=== PATIENT | female | born 1935 | race Caucasian/White ===

== ENCOUNTER 2016-03-30 11:50 | Emergency (ER) | payer MEDICARE, BC ==
[2016-03-30] MEDS ORDERED: ceFAZolin 1 GM in Dextrose (*) 1 GM/50 ML BAG IVPB ONE (17:01)
--- NOTE | 2016-03-30 17:30 | RAD ---
INDICATION: Pain at base of RIGHT thumb. Swelling and redness. No preceding injury. COMPARISON: None. TECHNIQUE: AP, lateral, and oblique views RIGHT hand. REPORT: Negative for fracture or dislocation. Polyarticular osteoarthritis most marked at the distal interphalangeal joints of the second through fifth fingers and at the basal joint of the thumb with severe joint space narrowing, osteophytosis, and subchondral sclerosis and cystic change. Associated periarticular soft tissue swelling most prominent at the distal interphalangeal joints. IMPRESSION: Advanced osteoarthritis including at the basal joint of the thumb corresponding with the region of clinical concern.
[2016-03-30 17:44] LABS: Hematocrit 46 % (35-47); Hemoglobin 15.7 g/dl (12.0-16.0); Mean Corpuscular HGB Conc 34 g/dl (31-36); Mean Corpuscular Hemoglobin 32 pg (27-31); Mean Corpuscular Volume 94 fL (80-97); Mean Platelet Volume 8 um3 (7.4-10.4); Red Blood Count 4.89 10^6/ul (4.0-5.4); Red Cell Distribution Width 13 % (10.5-15); White Blood Count 8.2 10^3/ul (3.5-10.8)
--- NOTE | 2016-03-30 18:01 | ED ---
Skin Complaint - HPI Summary HPI Summary: Patient arrives to ED with a CC of right thumb and hand swelling, warmth and redness since last night. Since in the waiting room (approx 5 hours), she now notes red streaking up the right arm ending at the elbow. Denies RA. Denies fever or FLETCHER. She states d/t her thin skin, she may have had an open wound around her thumb she was unaware of. She called her PCP which referred her to here for "IV antibiotics." No allergies. - History of Current Complaint Chief Complaint: EDExtremityUpper Stated Complaint: RT HAND/THUMB-HAND SWELLING Hx Obtained From: Patient Onset/Duration: Started Hours Ago Skin Exposure Onset/Duration: Worse Since: - arriving in ED Onset Severity: Mild Current Severity: Mild Pain Intensity: 0 Pain Scale Used: 0-10 Numeric Skin Location: Discrete - right tumb and index finger now streaking up forearm Character: Swelling, Redness Aggravating Symptom(s): Nothing Alleviating Symptom(s): Nothing Associated Signs & Symptoms: Red Streaks - up forearm to elbow of right extremity, Joint Swelling - rigth MCP joint swelling Related History: Other: - no known trauma - Additional Pertinent History Primary Care Physician: [id number] - Allergy/Home Medications Allergies/Adverse Reactions: Allergies Allergy/AdvReac Type Severity Reaction Status Date / Time No Known Allergies Allergy Verified 02/17/16 21:10 PMH/Surg Hx/FS Hx/Imm Hx Previously Healthy: Yes Endocrine/Hematology History: Denies: Hx Diabetes, Hx Thyroid Disease Cardiovascular History: Reports: Hx Hypertension Denies: Hx Pacemaker/ICD Respiratory History: Denies: Hx Asthma, Hx Chronic Obstructive Pulmonary Disease (COPD) GI History: Denies: Hx Ulcer Musculoskeletal History: Reports: Hx Arthritis - BACK,HANDS Comment Only: Other Musculoskeletal History - see above Sensory History: Reports: Hx Cataracts, Hx Contacts or Glasses - READING, Hx Glaucoma Denies: Hx Hearing Aid Opthamlomology History: Reports: Hx Cataracts, Hx Contacts or Glasses - READING , Hx Glaucoma Psychiatric History: Reports: Hx Anxiety - ON MEDS, Hx Panic Disorder - Cancer History Cancer Type, 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 L HIP REPLACEMENT. RT HIP PINNING. APPY,HYSTERECTOMY, CATARACT LEFT EYE, T&A Hx Anesthesia Reactions: No - Immunization History Date of Tetanus Vaccine: PT STATES UNSURE Date of Influenza Vaccine: NONE Infectious Disease History: No Infectious Disease History: Denies: Hx Clostridium Difficile, Hx Hepatitis, Hx Human Immunodeficiency Virus (HIV), Hx of Known/Suspected MRSA, Hx Shingles, Hx Tuberculosis, Hx Known/ Suspected VRE, Hx Known/Suspected VRSA, History Other Infectious Disease, Traveled Outside the [place] in Last 30 Days - Family History Known Family History: Positive: Cardiac Disease - Social History Occupation: Retired Lives: Alone Alcohol Use: Rare Substance Use Type: Reports: None Smoking Status (MU): Never Smoked Tobacco Review of Systems Constitutional: Negative Eyes: Negative Cardiovascular: Negative Respiratory: Negative Musculoskeletal: Negative Positive: Edema - over right MCP joint of thumb Positive: Other - redness and swelling over right thumb and index finger with streaking up right forearm Neurological: Negative Psychological: Normal All Other Systems Reviewed And Are Negative: Yes Physical Exam - Summary Physical Exam Summary: redness and swelling over right thumb and index finger with streaking up right forearm Triage Information Reviewed: Yes Vital Signs On Initial Exam: Initial Vitals Temp Pulse Resp BP Pulse Ox 98.4 F 81 16 169/83 99 03/30/16 12:00 03/30/16 12:00 03/30/16 12:00 03/30/16 12:00 03/30/16 12:00 Vital Signs Reviewed: Yes Appearance: Positive: Well-Appearing, No Pain Distress, Well-Nourished Skin: Positive: Warm, Erythema @ - right MCP thumb and index finger, Other - streaking right forearm Head/Face: Positive: Normal Head/Face Inspection Eyes: Positive: Normal, EOMI, MARTIR Neck: Positive: Supple, Nontender Respiratory/Lung Sounds: Positive: Clear to Auscultation Cardiovascular: Positive: Normal, RRR Musculoskeletal: Positive: Normal, Strength/ROM Intact, Limited @ - right thumb flexion, adduction and abduction Psychiatric: Positive: Normal Diagnostics - Vital Signs Vital Signs Temp Pulse Resp BP Pulse Ox 03/30/16 17:52 99.2 F 74 18 165/74 97 03/30/16 12:00 98.4 F 81 16 169/83 99 - Laboratory Lab Results: Lab Results 03/30/16 Range/Units 17:30 WBC 8.2 (3.5-10.8) 10^3/ul RBC 4.89 (4.0-5.4) 10^6/ul Hgb 15.7 (12.0-16.0) g/dl Hct 46 (35-47) % MCV 94 (80-97) fL MCH 32 H (27-31) pg MCHC 34 (31-36) g/dl RDW 13 (10.5-15) % Plt Count 244 (150-450) 10^3/ul MPV 8 (7.4-10.4) um3 Neut % (Auto) 64.7 (38-83) % Lymph % (Auto) 18.5 L (25-47) % [place] % (Auto) 14.8 H (1-9) % Eos % (Auto) 0.9 (0-6) % Baso % (Auto) 1.1 (0-2) % Absolute Neuts (auto) 5.3 (1.5-7.7) 10^3/ul Absolute Lymphs (auto) 1.5 (1.0-4.8) 10^3/ul Absolute Monos (auto) 1.2 H (0-0.8) 10^3/ul Absolute Eos (auto) 0.1 (0-0.6) 10^3/ul Absolute Basos (auto) 0.1 (0-0.2) 10^3/ul Absolute Nucleated RBC 0.01 10^3/ul Nucleated RBC % 0.1 ESR Pending Result Diagrams: 03/30/16 17:30 03/30/16 17:30 Lab Statement: Any lab studies that have been ordered have been reviewed, and results considered in the medical decision making process. - Radiology No standard instances Xray Interpretation: No Acute Changes Radiology Interpretation Completed By: Radiologist Course/Dx - Course Course Of Treatment: Patient given 1g Cefazolin, labs drawn and xray. Xray showed osteoarthritis but no acute findings. Consult with Dr. Varela at 5:15p deferred to ED providers if safe to DC or admit for IV abx. Provider and Dr. Marvin agreed safe to go home on Bactrim with close return precautions and follow up with Dr. Varela on Saturday. Patient agrees and feels safe to go home. - Differential Diagnoses - Skin Complaint Differential Diagnoses: Angioedema, Cellulitis, Urticaria - Diagnoses Provider Diagnoses: Cellulitis of hand, right Discharge - Discharge Plan Condition: Stable Disposition: HOME Prescriptions: Sulfamethox/Trimethoprim DS* [Bactrim DS 800/160 TAB*] 1 tab PO BID #14 tab MDD 2 Patient Education Materials: Cellulitis (ED) Referrals: Kathy Comer MD [Primary Care Provider] - Chino Varela MD [Medical Doctor] - Additional Instructions: Follow up with Dr. Varela on Saturday, Apr 03. Call for appt on Saturday. Watch for signs of infection such as worsening redness, pain, swelling warmth, streaking up the arm or fever. If you develop chills or sweats, come back to ED. Take Bactrum once daily for [address] Varela tells you different.
[2016-03-30 18:05] LABS: Albumin 4.3 g/dL (3.2-5.2); BUN/Creatinine Ratio 13.8 (8-20); Calcium 9.8 mg/dL (8.6-10.3); EGFR Non-African American 99.5 (>60); Globulin 3.4 g/dL (2-4); Potassium 4.2 mmol/L (3.5-5.0); Total Bilirubin 0.7 mg/dL (0.2-1.0); Total Protein 7.7 g/dL (6.4-8.9)
[2016-03-30 18:24] LABS: Erythrocyte Sed Rate 27 mm/Hr (0-40)
[2016-03-30] MEDS ORDERED: Sulfamethox/Trimethoprim DS 800/160* TAB PO ONE ×2 (19:49)
[2016-03-30 20:20] VITALS: BP 115/72
== END 2016-03-30 20:19 | disposition home or self-care (01) ==
LOC: ED 11:50 → MED 17:45 → UNDOADMOB 17:45 → ED 20:19
DX: L03.113 Cellulitis of right upper limb (principal); R60.9 Edema, unspecified
CPT/HCPCS: 36415; 80053; 83605; 85025; 85652; 87040; 96365; 99282; A9270-GY; J0690

== ENCOUNTER 2016-09-18 11:30 | Day surgery (SDC) | payer MEDICARE, OTHER ==
[~2016-09-18 11:30] MED LIST: Acetaminophen TAB* 325 MG PO PRN; Buffered Lidocaine 0.9% SYRIN* 5 ML/SYR SYRINGE INTRADERM ONE
[2016-09-18] MEDS ORDERED: Flurbiprofen 0.03% OPTH.SOL* 2.5 ML BTL ONE (11:39)
[2016-09-18] MEDS ORDERED: Phenylephrine 2.5% OPTH.SOL* 2 ML BTL ONE (11:39)
[2016-09-18] MEDS ORDERED: Buffered Lidocaine 0.9% SYRIN* 5 ML/SYR SYRINGE ONE (11:39)
[2016-09-18] MEDS ORDERED: Neomycin/Polymy/Dex OPHTH.OIN* 3.5 GM ONE (11:39)
[2016-09-18] MEDS ORDERED: Cyclopentolate 1% OPTH.SOL* 2 ML BTL ONE (11:39)
[2016-09-18] MEDS ORDERED: Tropicamide 1% OPTH.SOL* BTL ONE (11:39)
[2016-09-18] MEDS ORDERED: Lidocaine 1% MPF* 2 ML VIAL ONE (11:39)
[2016-09-18] MEDS ORDERED: Tetracaine 0.5% OPTH.SOL 4 ML* 1 DROP BTL ONE (11:39)
[2016-09-18] MEDS ORDERED: Midazolam* 1 MG/ML 2 ML VIAL (2 MG) ONE (11:50)
[2016-09-18] MEDS ORDERED: fentaNYL* 50 MCG/ML 2 ML VIAL (100 MCG VIAL) ONE (12:13)
[2016-09-18] MEDS ORDERED: Phenylephr/Ketorolac 1%/0.3% OPH DROP BTL ONE (12:40)
[2016-09-18 13:07] VITALS: BP 175/72
--- NOTE | 2016-09-19 02:29 | OP ---
DATE OF OPERATION: 09/18/16 - [facility] DATE OF : 31 SURGEON: Marco A Deluna MD [place]E RUNNER: None. ANESTHESIA: Topical with intravenous sedation. PRE-OP DIAGNOSES: Cataract with glaucoma and small pupil, pseudoexfoliation material right eye. POST-OP DIAGNOSES: Cataract with glaucoma and small pupil, pseudoexfoliation material right eye. OPERATIVE PROCEDURE: Phacoemulsification and cataract extraction with posterior chamber intraocular lens implant and iStent implant, right eye. COMPLICATIONS: None. BLOOD LOSS: None. DESCRIPTION OF PROCEDURE: The patient was brought to the operating room and received a small amount of intra-venous sedation. A drop of tetracaine was placed into her right eye. The patient was prepped and draped in the usual sterile fashion for ophthalmic surgery and attention was directed to the right eye, where a speculum was placed. A paracentesis was created at the 11 o'clock position and 0.1 cc of 1% preservative-free lidocaine was injected into the anterior chamber followed by DisCoVisc. It was noted that pupil measured approximately 3.5 mm in diameter despite preoperative dilating drops. The addition of the DisCoVisc did not further dilate the pupil. The eye was digitally stabilized while a 2.75-mm keratome was used to create a triplanar clear corneal incision at the 9 o'clock position. A Malyugin ring was introduced into the anterior chamber and used to capture the pupillary border. The Malyugin ring served to dilate the pupil nicely for the duration of the case. A continuous curvilinear capsulorrhexis was created with a cystotome and Utrata forceps. BSS on a cannula was used to hydrodissect the lens from the capsule. The pressure in the irrigating system was reduced. Phacoemulsification was performed in a [id number] technique to create 4 fragments, which were removed. Residual cortical material was removed with irrigation and aspiration. Gentle vacuuming and polishing of the posterior capsule was performed. DisCoVisc was used to inflate the capsular bag. An [id number] 20 diopter lens was folded and inserted into the capsular bag. DisCoVisc was then removed from posterior to the lens. Supplemental DisCoVisc was placed anterior to the lens. The Malyugin ring was atraumatically removed from the eye. More DisCoVisc was placed in the anterior chamber to deepen it. DisCoVisc was also placed on the surface of the cornea. The patient's head was rotated away from the surgeon and the microscope was tilted toward the surgeon. A gonioprism was placed on the surface of the eye. Under direct visualization , iStent was inserted into the trabecular meshwork in the nasal aspect of the eye. The gonioprism and iStent director of pharmacy were removed. The eye and the microscope were brought to a neutral position. Irrigation and aspiration were then performed to remove all viscoelastic from the eye. BSS on a cannula was used to hydrate the corneal stoma and seal the wound. At the end of the case, the pupil was round and measured approximately 3 mm. The eye pressure appeared normal. The wound was watertight. The lens and iStent were in stable position. The speculum was removed and topical Maxitrol ointment was placed on the surface of the eye. The eye was closed, patched, and shielded and the patient was sent to the recovery room in stable condition with postoperative instructions and followup appointment given. [id number]/[facility] #: [id number] FABIAN
== END 2016-09-18 13:02 | disposition home or self-care (01) ==
LOC: OREAST 11:30
PROVIDERS: ATTEND Ophthalmology
DX: H25.11 Age-related nuclear cataract, right eye (principal); H21.562 Pupillary abnormality, left eye; H40.89 Other specified glaucoma; I10 Essential (primary) hypertension
CPT/HCPCS: A9270-GY; C1783; C9447; J2250; J3010; V2632

== ENCOUNTER 2017-04-10 20:25 | Observation (INO) | payer MEDICARE, BC ==
--- OUTSIDE RECORDS SUMMARY | 2017-04-10 20:59 | XMS REPORT ---
:1935 External Reference #:[id number] Author Organization [facility] Address [address] [place] [address] Phone [phone] Care Team Providers Name Role Phone Kathy Dai M.D., R.D. Care Team Information Facility Service Associate Unavailable Payers Type Date Identification Numbers Payment Provider Subscriber Medicare Primary Policy Number: [id number] Medicare - Bswny Umd Tristin Chowdhury PayID: [id number] [address] [place] [address] Medigap Part B Policy Number: [id number] [facility]([place] Tristin Chowdhury Group Name: [place] [address] PayID: [id number] [place] [address] Problems Description No Information Family History Date Family Member(s) Problem(s) Comments Children 3 Daughter and son live in [place]. Another son is a little further away. 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 every night and 1/2 tablet in the morning Lisinopril 04/18 Active Tablets 30mg 90tab take one s tablet by julien Dai M.D., every day R.D. Buspirone HCL 11/17 Active Tablets 10mg 180ta Take One bs Tablet By Julien Dai M.D., Twice A R.D. Day Aspir-81 09/21 Active Tablets 81mg 30tab [address] celia Dai, every day Cliff, RCathiDCathi Calcium 1000 + D 09/21 Active Tablets 1000-800m 1 po bid g-Unit Cliff Dai, R.DCathi Fish Oil 09/21 Active Capsules 1000mg 1 by julien Dai, every day Cliff, R.D. Multivitamins 09/21 Active Capsules 90cap 1 by celia Dai, every day Cliff, RCathiDCathi Vitamin C 09/21 Active 1 by julien Dai, every day Cliff, R.D. Zetia 09/21 Active Tablets 10mg 90tab take celia one/half Suhas tablet by Cliff, mouth R.DCathi daily Hydrochlorothiazide 04/05 Hx Tablets 25mg 30tab 1 by Al celia Whaley - every day , 04/05 Metoprolol Succinate 11/26 Hx Tablets 50mg 30tab 1 by Kathy ER 24HR celia Dai - every day Cliff, 11/28 R.D. Hydrochlorothiazide 10/03 Hx Tablets 25mg 30tab 1 by Al celia Whaley - every day , 10/03 Metoprolol Tartrate 09/26 Hx Tablets 25mg 60tab take one s tablet by Maru Dai M.D., 09/26 twice a R.D. /2016 day Metoprolol Succinate 09/26 Hx Tablets 100-12.5m Kathy ER/othiaz ER 24HR Rangel M.D., 09/26 R.D. Metoprolol Tartrate 09/26 Hx Tablets 25mg take one tablet by Suhas, - mouth M.D., 09/26 twice a R.D. /2016 day Amlodipine Besylate 09/26 Hx Tablets 2.5mg 90tab 1 by s mouth Suhas, - every day M.D., 03/13 R.D. Lisinopril 08/24 Hx Tablets 40mg 30tab 1 by s mouth Suhas, - every day M.D., 09/02 R.D. 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 /2016 Fosamax 09/18 Hx Tablets 70mg 13tab one every Al s week on Heetpinky mccann MD 11/27 do not lie down for at least 1/2 hour after taking Lisinopril 04/06 Hx Tablets 40mg 30tab 1 by s mouth Suhas, - every day M.D., 04/18 R.D. Lexapro 04/06 Hx Tablets 10mg 30tab 1/2 by I10 s mouth Suhas, - every day M.D., 04/18 for 3 R.D. /2015 days, then increase to 1 by mouth every day Lisinopril 11/17 Hx Tablets 20mg 30tab 2 by s mouth Suhas, - every day M.D., 04/06 R.D. /2015 Ativan 10/14 Hx Tablets 1mg 15tab 1 by F41.9 s mouth Suhas, - twice a M.D., 11/27 day R.D. /2015 Lisinopril 10/07 Hx Tablets 10mg 45tab 1 1/2 by s mouth Suhas, - every day M.D., 11/17 R.D. /2014 Lisinopril 09/21 Hx Tablets 5mg 90tab 1 by s mouth Suhas, - every day M.D., 10/07 R.D. Buspirone HCL 09/21 Hx Tablets 7.5mg 180ta Take One bs Tablet By Suhas, - Mouth M.DCathi, 11/17 Twice A R.D. /2014 Day Atenolol 09/21 Hx Tablets 25mg 135ta take one bs tablet by Suhas, - mouth M.D., 11/26 every in R.D. the morning and 1/2 tablet by mouth every at night Immunizations CPT Code Status Date Vaccine Lot # [id number] Given 11/24/2016 Influenza Virus Vaccine, Quadrivalent, 3 Yr > Quad, Preserv Free 30098 Given 11/28/2015 Influenza Virus Vaccine, Quadrivalent, 3 Yr > [id number] Quad, Preserv Free 27319 Given 12/13/2014 Prevnar-13 Pneumococcal Conjugate Vaccine [id number] 41520 Given 12/13/2014 Influenza Vaccine High Dose PF [id number] 74920 Given 12/16/2013 Influenza Vaccine High Dose PF [id number] 58804 Given 10/10/2007 Zoster Vaccine [id number] Given 09/09/2007 Tdap (Adacel) 33420 Given 07/09/2002 Pneumovax 23 (PPSV23) 65+ years or high risk 2 to 64 year old Vital Signs Date Vital Result Comment 04/05/2017 Weight 127.00 lb Weight in kg's 57.607 BP Systolic 176 mmHg 152/80 on repeat BP Diastolic 90 mmHg 152/80 on repeat Heart Rate 64 /min Body Temperature 96.8 F Respiratory Rate 18 /min O2 % BldC Oximetry 98 % 03/13/2017 Weight 131.00 lb Weight in kg's 59.422 BP Systolic 140 mmHg BP Diastolic 70 mmHg Heart Rate 68 /min Body Temperature 98.1 F Respiratory Rate 16 /min 02/25/2017 Weight 131.00 lb Weight in kg's 59.422 BP Systolic 160 mmHg BP Diastolic 78 mmHg Heart Rate 70 /min Body Temperature 97.9 F Respiratory Rate 15 /min O2 % BldC Oximetry 97 % 01/03/2017 Weight 129.00 lb Weight in kg's 58.514 BP Systolic 180 mmHg BP Diastolic 68 mmHg Heart Rate 68 /min Body Temperature 97.4 F 11/26/2016 Weight 128.00 lb Weight in kg's 58.061 BP Systolic 130 mmHg BP Diastolic 70 mmHg Heart Rate 72 /min Body Temperature 98.7 F Respiratory Rate 16 /min 10/03/2016 Weight 127.00 lb Weight in kg's 57.607 BP Systolic 140 mmHg BP Diastolic 80 mmHg Heart Rate 100 /min Body Temperature 98.6 F Respiratory Rate 14 /min 08/24/2016 Weight 128.00 lb Weight in kg's 58.061 BP Systolic 164 mmHg BP Diastolic 70 mmHg Heart Rate 78 /min Body Temperature 97.7 F Respiratory Rate 18 /min Height 64 inches 5'4" BMI (Body Mass Index) 22.0 kg/m2 O2 % BldC Oximetry 98 % 05/07/2016 Weight 126.00 lb Weight in kg's 57.154 BP Systolic 140 mmHg BP Diastolic 78 mmHg Heart Rate 78 /min Body Temperature 99.1 F Respiratory Rate 18 /min O2 % BldC Oximetry 98 % 05/03/2016 Weight 128.00 lb Weight in kg's 58.061 BP Systolic 150 mmHg BP Diastolic 72 mmHg Heart Rate 72 /min Body Temperature 98.9 F Respiratory Rate 14 /min 03/30/2016 Weight 128.00 lb Weight in kg's 58.061 BP Systolic 158 mmHg BP Diastolic 68 mmHg Heart Rate 89 /min Body Temperature 98.0 F Respiratory Rate 16 /min Height 63.5 inches 5'3.50" BMI (Body Mass Index) 22.3 kg/m2 O2 % BldC Oximetry 99 % 02/27/2016 Weight 128.00 lb Weight in kg's 58.061 BP Systolic 127 mmHg BP Diastolic 65 mmHg Heart Rate 76 /min 11/28/2015 Weight 127.00 lb Weight in kg's 57.607 BP Systolic 120 mmHg BP Diastolic 70 mmHg Heart Rate 64 /min Body Temperature 98.1 F Respiratory Rate 12 /min 07/11/2015 Weight 125.00 lb Weight in kg's 56.700 BP Systolic 130 mmHg BP Diastolic 65 mmHg Heart Rate 50 /min Height 63.5 inches 5'3.50" BMI (Body Mass Index) 21.8 kg/m2 O2 % BldC Oximetry 90 % 05/18/2015 Weight 127.00 lb Weight in kg's 57.607 BP Systolic 140 mmHg BP Diastolic 62 mmHg Heart Rate 74 /min O2 % BldC Oximetry 98 % 04/18/2015 Weight 126.00 lb Weight in kg's 57.154 BP Systolic 140 mmHg BP Diastolic 60 mmHg Heart Rate 76 /min 04/06/2015 Weight 127.00 lb Weight in kg's 57.607 BP Systolic 174 mmHg Auto Cuff: 196/75 BP Diastolic 78 mmHg Auto Cuff: 196/75 Heart Rate 100 /min Auto 106 03/24/2015 Weight 127.00 lb Weight in kg's 57.607 BP Systolic 148 mmHg BP Diastolic 76 mmHg Heart Rate 72 /min 03/08/2015 Weight 126.00 lb Weight in kg's 57.154 BP Systolic 160 mmHg BP Diastolic 80 mmHg Heart Rate 64 /min Body Temperature 97.2 F 12/13/2014 Weight 126.00 lb Weight in kg's 57.154 BP Systolic 150 mmHg BP Diastolic 76 mmHg Heart Rate 68 /min 11/17/2014 Weight 124.00 lb Weight in kg's 56.246 BP Systolic 140 mmHg BP Diastolic 60 mmHg Heart Rate 60 /min 10/27/2014 Weight 122.00 lb Weight in kg's 55.339 BP Systolic 160 mmHg BP Diastolic 78 mmHg Heart Rate 72 /min 10/21/2014 Weight 121.00 lb Weight in kg's 54.886 BP Systolic 180 mmHg BP Diastolic 90 mmHg Heart Rate 72 /min 10/14/2014 Weight 122.00 lb Weight in kg's 55.339 BP Systolic 190 mmHg Ashley 160/70 BP Diastolic 98 mmHg Ashley 160/70 Heart Rate 76 /min 10/07/2014 Weight 120.00 lb Weight in kg's 54.432 BP Systolic 160 mmHg [id number] BP Diastolic 80 mmHg [id number] Heart Rate 68 /min [id number] 09/09/2014 Weight 119.00 lb Weight in kg's 53.978 BP Systolic 160 mmHg BP Diastolic 70 mmHg Heart Rate 64 /min Body Temperature 98.0 F 06/28/2014 Weight 121.00 lb Weight in kg's 54.886 BP Systolic 122 mmHg BP Diastolic 60 mmHg Heart Rate 72 /min Height 64 inches 5'4" BMI (Body Mass Index) 20.8 kg/m2 05/13/2014 Weight 121.00 lb Weight in kg's 54.886 BP Systolic 148 mmHg BP Diastolic 80 mmHg Heart Rate 62 /min 11/02/2013 Weight 121.00 lb Weight in kg's 54.886 BP Systolic 138 mmHg BP Diastolic 68 mmHg Heart Rate 66 /min 10/21/2013 Weight 123.00 lb Weight in kg's 55.793 BP Systolic 130 mmHg BP Diastolic 60 mmHg Heart Rate 62 /min O2 % BldC Oximetry 96 % 09/21/2013 Weight 122.00 lb Weight in kg's 55.339 BP Systolic 140 mmHg BP Diastolic 70 mmHg Heart Rate 76 /min Height 64 inches 5'4" BMI (Body Mass Index) 20.9 kg/m2 Results Test Date Test Result H/L Range Note Urine DIP 01/03/2017 Leukocytes trace Neg Urine Nitrites neg Neg Urobilinogen norm Norm Total Protein, Urine neg Neg Urine pH 7.0 High 5-6 Urine Blood neg Neg Specific [place] 1.010 1.01-1.02 Urine Ketones neg Neg Urine Bilirubin neg Neg Urine Glucose norm Norm Basic Metabolic Panel 09/17/2016 Sodium 131 mmol/L Low 133-145 Potassium 4.5 mmol/L 3.5-5.0 Chloride 97 mmol/L Low 101-111 Co2 Carbon Dioxide 29 mmol/L 22-32 Anion Gap 5 mmol/L 2-11 Glucose 92 mg/dL 70-100 Blood Urea Nitrogen 12 mg/dL 6-24 Creatinine 0.66 mg/dL 0.51-0.95 BUN/Creatinine Ratio 18.2 8-20 Calcium 9.5 mg/dL 8.6-10.3 Egfr Non- 85.5 >60 Egfr 110.0 >60 1 CBC Auto Diff 08/29/2016 White Blood Count 6.0 10^3/uL 3.5-10.8 Red Blood Count 4.92 10^6/uL 4.0-5.4 Hemoglobin 15.4 g/dL 12.0-16.0 Hematocrit 47 % 35-47 Mean Corpuscular Volume 95 fL 80-97 Mean Corpuscular Hemoglobin 31 pg 27-31 Mean Corpuscular HGB Conc 33 g/dL 31-36 Red Cell Distribution Width 13 % 10.5-15 Platelet Count 321 10^3/uL 150-450 Mean Platelet Volume 8 um3 7.4-10.4 Abs Neutrophils 3.7 10^3/uL 1.5-7.7 Abs Lymphocytes 1.6 10^3/uL 1.0-4.8 Abs Monocytes 0.6 10^3/uL 0-0.8 Abs Eosinophils 0 10^3/uL 0-0.6 Abs Basophils 0.1 10^3/uL 0-0.2 Abs Nucleated RBC 0.02 10^3/uL Granulocyte % 60.7 % 38-83 Lymphocyte % 27.2 % 25-47 Monocyte % 10.5 % High 1-9 Eosinophil % 0.7 % 0-6 Basophil % 0.9 % 0-2 Nucleated Red Blood Cells % 0.3 Comp Metabolic Panel 08/29/2016 Sodium 131 mmol/L Low 133-145 Potassium 5.3 mmol/L High 3.5-5.0 Chloride 98 mmol/L Low 101-111 Co2 Carbon Dioxide 28 mmol/L 22-32 Anion Gap 5 mmol/L 2-11 Glucose 99 mg/dL 70-100 Blood Urea Nitrogen 12 mg/dL 6-24 Creatinine 0.68 mg/dL 0.51-0.95 BUN/Creatinine Ratio 17.6 8-20 Calcium 9.7 mg/dL 8.6-10.3 Total Protein 7.0 g/dL 6.4-8.9 Albumin 3.9 g/dL 3.2-5.2 Globulin 3.1 g/dL 2-4 Albumin/Globulin Ratio 1.3 1-3 Total Bilirubin 0.50 mg/dL 0.2-1.0 Alkaline Phosphatase 60 U/L 34-104 Alt 19 U/L 7-52 Ast 26 U/L 13-39 Egfr Non- 82.8 >60 Egfr 106.5 >60 2 Lipid Profile (Trig/Chol/HDL) 08/29/2016 Triglycerides 90 mg/dL 3 Cholesterol 200 mg/dL 4 HDL Cholesterol 69.6 mg/dL 5 LDL Cholesterol 112 mg/dL 6 Laboratory test finding 08/29/2016 Vitamin D Total 25(Oh) 38.2 ng/mL 30- 50 7 Basic Metabolic Panel 05/07/2016 Sodium 128 mmol/L Low 133-145 Potassium 5.1 mmol/L High 3.5-5.0 Chloride 93 mmol/L Low 101-111 Co2 Carbon Dioxide 31 mmol/L 22-32 Anion Gap 4 mmol/L 2-11 Glucose 90 mg/dL 70-100 Blood Urea Nitrogen 13 mg/dL 6-24 Creatinine 0.67 mg/dL 0.51-0.95 BUN/Creatinine Ratio 19.4 8-20 Calcium 9.9 mg/dL 8.6-10.3 Egfr Non- 84.3 >60 Egfr 108.4 >60 8 Urine DIP 05/03/2016 Leukocytes NEG Neg Urine Nitrites NEG Neg Urobilinogen NORM Norm Total Protein, Urine NEG Neg Urine pH 9 High 5-6 Urine Blood NEG Neg Specific [place] 1.005 Low 1.01-1.02 Urine Ketones NEG Neg Urine Bilirubin NEG Neg Urine Glucose NORM Norm Laboratory test finding 03/30/2016 Lactic Acid 1.0 mmol/L 0.5-2.0 9 Comp Metabolic Panel 03/30/2016 Sodium 127 mmol/L Low 133-145 Potassium 4.2 mmol/L 3.5-5.0 Chloride 93 mmol/L Low 101-111 Co2 Carbon Dioxide 27 mmol/L 22-32 Anion Gap 7 mmol/L 2-11 Glucose 101 mg/dL High 70-100 Blood Urea Nitrogen 8 mg/dL 6-24 Creatinine 0.58 mg/dL 0.51-0.95 BUN/Creatinine Ratio 13.8 8-20 Calcium 9.8 mg/dL 8.6-10.3 Total Protein 7.7 g/dL 6.4-8.9 Albumin 4.3 g/dL 3.2-5.2 Globulin 3.4 g/dL 2-4 Albumin/Globulin Ratio 1.3 1-3 Total Bilirubin 0.70 mg/dL 0.2-1.0 Alkaline Phosphatase 63 U/L 34-104 Alt 19 U/L 7-52 Ast 25 U/L 13-39 Egfr Non- 99.5 >60 Egfr 128.0 >60 10 CBC Auto Diff 03/30/2016 White Blood Count 8.2 10^3/uL 3.5-10.8 Red Blood Count 4.89 10^6/uL 4.0-5.4 Hemoglobin 15.7 g/dL 12.0-16.0 Hematocrit 46 % 35-47 Mean Corpuscular Volume 94 fL 80-97 Mean Corpuscular Hemoglobin 32 pg High 27-31 Mean Corpuscular HGB Conc 34 g/dL 31-36 Red Cell Distribution Width 13 % 10.5-15 Platelet Count 244 10^3/uL 150-450 Mean Platelet Volume 8 um3 7.4-10.4 Abs Neutrophils 5.3 10^3/uL 1.5-7.7 Abs Lymphocytes 1.5 10^3/uL 1.0-4.8 Abs Monocytes 1.2 10^3/uL High 0-0.8 Abs Eosinophils 0.1 10^3/uL 0-0.6 Abs Basophils 0.1 10^3/uL 0-0.2 Abs Nucleated RBC 0.01 10^3/uL Granulocyte % 64.7 % 38-83 Lymphocyte % 18.5 % Low 25-47 Monocyte % 14.8 % High 1-9 Eosinophil % 0.9 % 0-6 Basophil % 1.1 % 0-2 Nucleated Red Blood Cells % 0.1 Laboratory test finding 03/30/2016 Erythrocyte Sed Rate 27 mm/Hr 0-40 Blood Culture SEE RESULT BELOW 11 Laboratory test finding 07/18/2015 C Reactive Protein 4.72 mg/L < 5.00 12 Comp Metabolic Panel 07/18/2015 Sodium 130 mmol/L Low 133-145 Potassium 4.9 mmol/L 3.5-5.0 Chloride 96 mmol/L Low 101-111 Co2 Carbon Dioxide 29 mmol/L 22-32 Anion Gap 5 mmol/L 2-11 Glucose 93 mg/dL 70-100 Blood Urea Nitrogen 14 mg/dL 6-24 Creatinine 0.74 mg/dL 0.51-0.95 BUN/Creatinine Ratio 18.9 8-20 Calcium 9.7 mg/dL 8.6-10.3 Total Protein 7.4 g/dL 6.4-8.9 Albumin 4.4 g/dL 3.2-5.2 Globulin 3.0 g/dL 2-4 Albumin/Globulin Ratio 1.5 1-3 Total Bilirubin 0.60 mg/dL 0.2-1.0 Alkaline Phosphatase 57 U/L 34-104 Alt 20 U/L 7-52 Ast 27 U/L 13-39 Egfr Non- 75.3 >60 Egfr 96.9 >60 13 Laboratory test finding 07/18/2015 Hemoglobin A1c 6.0 % Less than 6.0 14 Lipid Profile (Trig/Chol/HDL) 07/18/2015 Triglycerides 119 mg/dL 15 Cholesterol 218 mg/dL 16 HDL Cholesterol 71.3 mg/dL 17 LDL Cholesterol 123 mg/dL 18 CBC Auto Diff 03/15/2015 White Blood Count 6.5 10^3/uL 3.5-10.8 Red Blood Count 4.86 10^6/uL 4.0-5.4 Hemoglobin 15.9 g/dL 12.0-16.0 Hematocrit 47 % 35-47 Mean Corpuscular Volume 97 fL 80-97 Mean Corpuscular Hemoglobin 33 pg High 27-31 Mean Corpuscular HGB Conc 34 g/dL 31-36 Red Cell Distribution Width 13 % 10.5-15 Platelet Count 233 10^3/uL 150-450 Mean Platelet Volume 7 um3 Low 7.4-10.4 Abs Neutrophils 4.5 10^3/uL 1.5-7.7 Abs Lymphocytes 1.1 10^3/uL 1.0-4.8 Abs Monocytes 0.7 10^3/uL 0-0.8 Abs Eosinophils 0 10^3/uL 0-0.6 Abs Basophils 0.1 10^3/uL 0-0.2 Abs Nucleated RBC 0.01 10^3/uL Granulocyte % 69.6 % 38-83 Lymphocyte % 17.3 % Low 25-47 Monocyte % 10.6 % High 1-9 Eosinophil % 0.6 % 0-6 Basophil % 1.9 % 0-2 Nucleated Red Blood Cells % 0.1 Laboratory test finding 03/15/2015 Surgical Pathology SEE RESULT BELOW 19 Leukemia/Lymphoma 03/15/2015 Path Interpretation 2-8 TNP Phenot Marker Path Interpret > 16 Marker TNP Path Interpret 9-15 Marker (SEE NOTE) 20 Bone Marrow Chromosomes 03/15/2015 BM Result Summary Normal BM Chromosome Specimen Bone Marrow BM Chromosome Source See Comment 21 BM Referral Reason See Comment 22 BM Chromosome Method See Comment 23 BM Chromo Banding Method See Comment 24 BM Cromosome Results 46,XX[20] BM Chromosome Interpretation See Comment 25 Released By See Comment 26 Plasma Cell Profliferative 03/15/2015 Plasma Cell Dis Res Insufficient Disorder Summary Plasma Cell Prolif Specimen Bone Marrow Plasma Cell Prolif Dis Source See Comment 27 Plasma Cell Referral Reason See Comment 28 Plasma Cell Prolif Dis Method See Comment 29 Plasma Cell Prolif Dis Results See Comment 30 Plasma Cell Dis Interpretation See Comment 31 Plasma Cell Dis Disclaimer See Comment 32 Plasma Cell Dis Released By See Comment 33 CBC Auto Diff 03/12/2015 White Blood Count 6.3 10^3/uL 3.5-10.8 Red Blood Count 4.99 10^6/uL 4.0-5.4 Hemoglobin 15.8 g/dL 12.0-16.0 Hematocrit 49 % High 35-47 Mean Corpuscular Volume 97 fL 80-97 Mean Corpuscular Hemoglobin 32 pg High 27-31 Mean Corpuscular HGB Conc 33 g/dL 31-36 Red Cell Distribution Width 13 % 10.5-15 Platelet Count 259 10^3/uL 150-450 Mean Platelet Volume 8 um3 7.4-10.4 Abs Neutrophils 3.6 10^3/uL 1.5-7.7 Abs Lymphocytes 1.8 10^3/uL 1.0-4.8 Abs Monocytes 0.8 10^3/uL 0-0.8 Abs Eosinophils 0.1 10^3/uL 0-0.6 Abs Basophils 0.1 10^3/uL 0-0.2 Abs Nucleated RBC 0.01 10^3/uL Granulocyte % 56.7 % 38-83 Lymphocyte % 28.6 % 25-47 Monocyte % 12.2 % High 1-9 Eosinophil % 1.4 % 0-6 Basophil % 1.1 % 0-2 Nucleated Red Blood Cells % 0.1 Inr/Protime 03/12/2015 Inr 0.94 0.89-1.11 Laboratory test finding 03/12/2015 Partial Thrombo Time 31.5 seconds 26.0 -36.3 PTT Lactic Acid 0.8 mmol/L 0.5-2.0 34 Comp Metabolic Panel 03/12/2015 Sodium 128 mmol/L Low 133-145 Potassium 4.1 mmol/L 3.5-5.0 Chloride 96 mmol/L Low 101-111 Co2 Carbon Dioxide 26 mmol/L 22-32 Anion Gap 6 mmol/L 2-11 Glucose 99 mg/dL 70-100 Blood Urea Nitrogen 10 mg/dL 6-24 Creatinine 0.62 mg/dL 0.51-0.95 BUN/Creatinine Ratio 16.1 8-20 Calcium 9.6 mg/dL 8.6-10.3 Total Protein 7.5 g/dL 6.4-8.9 Albumin 4.3 g/dL 3.2-5.2 Globulin 3.2 g/dL 2-4 Albumin/Globulin Ratio 1.3 1-3 Total Bilirubin 0.40 mg/dL 0.2-1.0 Alkaline Phosphatase 64 U/L 34-104 Alt 20 U/L 7-52 Ast 26 U/L 13-39 Egfr Non- 92.4 >60 Egfr 118.8 >60 35 Laboratory test finding 03/12/2015 Magnesium 2.2 mg/dL 1.9-2.7 Lipase 48 U/L 11.0-82.0 Creatine Kinase 95 U/L 10-223 C Reactive Protein 3.85 mg/L < 5.00 36 Troponin I 0.00 ng/mL <0.03 37 CKMB 03/12/2015 CKMB ng/mL 5.2 ng/mL 0.6-6.3 Laboratory test finding 03/12/2015 TSH (Thyroid 1.01 ?IU/mL 0.34-5.60 Stimulating Horm) Immunoglobulins Serum 02/23/2015 Immunoglobulin G 998 mg/dL 767 - 1590 38 Quant Immunoglobulin M 561 mg/dL 37 - 286 Immunoglobulin A 138 mg/dL 61 - 356 Laboratory test finding 02/23/2015 Beta 2 Microglobulin 2.11 g/mL 39 [place]/Lambda Free Light Chains 02/23/2015 [place] Free Light Chain 1.83 mg/dL 40 Ser Lambda Free Light Chain 1.18 mg/dL 41 [place]/Lambda Free Light Chain 1.55 42 Comp Metabolic Panel 02/23/2015 Sodium 131 mmol/L Low 133-145 Potassium 4.0 mmol/L 3.5-5.0 Chloride 94 mmol/L Low 101-111 Co2 Carbon Dioxide 29 mmol/L 22-32 Anion Gap 8 mmol/L 2-11 Glucose 87 mg/dL 70-100 Blood Urea Nitrogen 15 mg/dL 6-24 Creatinine 0.71 mg/dL 0.51-0.95 BUN/Creatinine Ratio 21.1 High 8-20 Calcium 10.2 mg/dL 8.6-10.3 Total Protein 7.9 g/dL 6.4-8.9 Albumin 4.5 g/dL 3.2-5.2 Globulin 3.4 g/dL 2-4 Albumin/Globulin Ratio 1.3 1-3 Total Bilirubin 0.50 mg/dL 0.2-1.0 Alkaline Phosphatase 63 U/L 34-104 Alt 22 U/L 7-52 Ast 31 U/L 13-39 Egfr Non- 79.0 >60 Egfr 101.6 >60 43 Arthritis Panel 02/08/2015 Uric Acid 3.2 mg/dL 2.3-6.6 Erythrocyte Sed Rate 24 mm/Hr 0-40 Suzan (Anti-Nuclear AB) Screen Reflexed to FA Negative Rheumatoid Factor <15 IU/mL <15 44 Suzan Hep-2 02/08/2015 Suzan Pattern Homogeneous Negative Suzan Titer 1:2560 <1:80 Suzan Reviewed By MD Yury Momin <SEE NOTE> 45 Protein Electrophoresis 02/08/2015 Total Protein(Pep) 7.6 g/dL 6.3 - 7.9 Albumin 3.6 g/dL 3.4-4.7 Alpha-1 Globulin 0.3 g/dL 0.1-0.3 Alpha-2 Globulin 1.3 g/dL 0.6-1.0 Beta Globulin 0.9 g/dL 0.7-1.2 Gamma Globulin 1.6 g/dL 0.6-1.6 Albumin/Globulin Ratio 0.88 M [place] 0.9 g/dL Impression See Comment 46 Immunofixation See Comment 47 Laboratory test finding 02/08/2015 Lyme Disease Serology Negative Negative 48 CBC Auto Diff 02/08/2015 White Blood Count 6.1 10^3/uL 4.8-10.8 Red Blood Count 4.86 10^6/uL 4.0-5.4 Hemoglobin 15.7 g/dL 12.0-16.0 Hematocrit 47 % 35-47 Mean Corpuscular Volume 97 fL 80-97 Mean Corpuscular Hemoglobin 32 pg High 27-31 Mean Corpuscular HGB Conc 33 g/dL 31-36 Red Cell Distribution Width 13 % 10.5-15 Platelet Count 247 10^3/uL 150-450 Mean Platelet Volume 8 um3 7.4-10.4 Abs Neutrophils 3.3 10^3/uL 1.5-7.7 Abs Lymphocytes 1.8 10^3/uL 1.0-4.8 Abs Monocytes 0.8 10^3/uL 0-0.8 Abs Eosinophils 0.2 10^3/uL 0-0.6 Abs Basophils 0.1 10^3/uL 0-0.2 Abs Nucleated RBC 0.02 10^3/uL Granulocyte % 53.8 % 38-83 Lymphocyte % 29.3 % 25-47 Monocyte % 12.7 % High 1-9 Eosinophil % 3.0 % 0-6 Basophil % 1.2 % 0-2 Nucleated Red Blood Cells % 0.2 Laboratory test finding 02/01/2015 Glucose 87 mg/dL 70-100 49, 50 Folate > 20.00 ng/mL >3.99 49, 51 Vitamin B12 612 pg/mL 180-914 49, 52 Vitamin D Total 25(Oh) 40.7 ng/mL 30-50 49, 53 Homocysteine 9 mcmol/L 49, 54 Laboratory test finding 12/28/2014 Osmolality Urine 457 mOsm/kg 150-1150 TSH (Thyroid Stimulating Horm) 1.42 ?IU/mL 0.34-5.60 Osmolality Serum 284 mOsm/kg 275-295 Comp Metabolic Panel 12/13/2014 Sodium 127 mmol/L Low 133-145 Potassium 4.6 mmol/L 3.5-5.0 Chloride 92 mmol/L Low 101-111 Co2 Carbon Dioxide 29 mmol/L 22-32 Anion Gap 6 mmol/L 2-11 Glucose 97 mg/dL 70-100 Blood Urea Nitrogen 15 mg/dL 6-24 Creatinine 0.64 mg/dL 0.51-0.95 BUN/Creatinine Ratio 23.4 High 8-20 Calcium 9.6 mg/dL 8.6-10.3 Total Protein 7.0 g/dL 6.4-8.9 Albumin 4.1 g/dL 3.2-5.2 Globulin 2.9 g/dL 2-4 Albumin/Globulin Ratio 1.4 1-3 Total Bilirubin 0.30 mg/dL 0.2-1.0 Alkaline Phosphatase 60 U/L 34-104 Alt 19 U/L 7-52 Ast 25 U/L 13-39 Egfr Non- 89.1 >60 Egfr 114.5 >60 55 Urinalysis Profile 10/08/2014 Urine Color Straw Urine Appearance Clear Urine Specific [place] 1.006 Low 1.010-1.030 Urine pH 7.0 5-9 Urine Urobilinogen Negative Negative Urine Ketones Negative Negative Urine Protein Negative Negative Urine Leukocytes Negative Negative Urine Blood Negative Negative Urine Nitrite Negative Negative Urine Bilirubin Negative Negative Urine Glucose Negative Negative CBC Auto Diff 10/08/2014 White Blood Count 6.3 10^3/uL 4.8-10.8 Red Blood Count 4.76 10^6/uL 4.0-5.4 Hemoglobin 15.5 g/dL 12.0-16.0 Hematocrit 46 % 35-47 Mean Corpuscular Volume 96 fL 80-97 Mean Corpuscular Hemoglobin 33 pg High 27-31 Mean Corpuscular HGB Conc 34 g/dL 31-36 Red Cell Distribution Width 13 % 10.5-15 Platelet Count 236 10^3/uL 150-450 Mean Platelet Volume 8 um3 7.4-10.4 Abs Neutrophils 3.9 10^3/uL 1.5-7.7 Abs Lymphocytes 1.6 10^3/uL 1.0-4.8 Abs Monocytes 0.7 10^3/uL 0-0.8 Abs Eosinophils 0 10^3/uL 0-0.6 Abs Basophils 0.1 10^3/uL 0-0.2 Abs Nucleated RBC 0.01 10^3/uL Granulocyte % 61.9 % 38-83 Lymphocyte % 24.7 % Low 25-47 Monocyte % 11.5 % High 1-9 Eosinophil % 0.6 % 0-6 Basophil % 1.3 % 0-2 Nucleated Red Blood Cells % 0.1 Laboratory test finding 10/08/2014 B Type Natriuretic 71 pg/mL 56 Peptide Inr/Protime 10/08/2014 Inr 0.95 0.78-1.07 Comp Metabolic Panel 10/08/2014 Sodium 127 mmol/L Low 133-145 Potassium 3.9 mmol/L 3.5-5.0 Chloride 93 mmol/L Low 101-111 Co2 Carbon Dioxide 26 mmol/L 22-32 Anion Gap 8 mmol/L 2-11 Glucose 106 mg/dL High 70-100 Blood Urea Nitrogen 12 mg/dL 6-24 Creatinine 0.64 mg/dL 0.51-0.95 BUN/Creatinine Ratio 18.8 8-20 Calcium 9.7 mg/dL 8.6-10.3 Total Protein 7.4 g/dL 6.4-8.9 Albumin 4.4 g/dL 3.2-5.2 Globulin 3.0 g/dL 2-4 Albumin/Globulin Ratio 1.5 1-3 Total Bilirubin 0.40 mg/dL 0.2-1.0 Alkaline Phosphatase 58 U/L 34-104 Alt 20 U/L 7-52 Ast 26 U/L 13-39 Egfr Non- 89.1 >60 Egfr 114.5 >60 57 Laboratory test finding 10/08/2014 Creatine Kinase 94 U/L 10-223 Troponin I 0.00 ng/mL <0.03 58 CKMB 10/08/2014 CKMB ng/mL 5.0 ng/mL 0.6-6.3 Laboratory test finding 10/08/2014 TSH (Thyroid Stimulating 0.99 ?IU/mL 0.34-5.60 Horm) CBC Auto Diff 08/27/2014 White Blood Count 6.6 10^3/uL 4.8-10.8 Red Blood Count 4.94 10^6/uL 4.0-5.4 Hemoglobin 16.3 g/dL High 12.0-16.0 Hematocrit 48 % High 35-47 Mean Corpuscular Volume 98 fL High 80-97 Mean Corpuscular Hemoglobin 33 pg High 27-31 Mean Corpuscular HGB Conc 34 g/dL 31-36 Red Cell Distribution Width 13 % 10.5-15 Platelet Count 253 10^3/uL 150-450 Mean Platelet Volume 7 um3 Low 7.4-10.4 Abs Neutrophils 4.0 10^3/uL 1.5-7.7 Abs Lymphocytes 1.8 10^3/uL 1.0-4.8 Abs Monocytes 0.7 10^3/uL 0-0.8 Abs Eosinophils 0.1 10^3/uL 0-0.6 Abs Basophils 0.1 10^3/uL 0-0.2 Abs Nucleated RBC 0.01 10^3/uL Granulocyte % 59.9 % 38-83 Lymphocyte % 26.7 % 25-47 Monocyte % 11.1 % High 1-9 Eosinophil % 1.3 % 0-6 Basophil % 1.0 % 0-2 Nucleated Red Blood Cells % 0.1 Basic Metabolic Panel 08/27/2014 Sodium 129 mmol/L Low 133-145 Potassium 3.8 mmol/L 3.5-5.0 Chloride 93 mmol/L Low 101-111 Co2 Carbon Dioxide 29 mmol/L 22-32 Anion Gap 7 mmol/L 2-11 Glucose 99 mg/dL 70-100 Blood Urea Nitrogen 9 mg/dL 6-24 Creatinine 0.67 mg/dL 0.51-0.95 BUN/Creatinine Ratio 13.4 8-20 Calcium 10.1 mg/dL 8.6-10.3 Egfr Non- 84.7 >60 Egfr 108.9 >60 59 Urine DIP 06/28/2014 Specific [place] 1.005 Low 1.01-1.02 Urine pH 8 High 5-6 Leukocytes NEG Neg Urine Nitrites NEG Neg Total Protein, Urine NEG Neg Urine Glucose NORM Norm Urine Ketones NEG Neg Urobilinogen NORM Norm Urine Bilirubin NEG Neg Urine Blood NEG Neg Lipid Profile (Trig/Chol/HDL) 06/21/2014 Triglycerides 89 mg/dL 60, 61 Cholesterol 211 mg/dL 60, 62 HDL Cholesterol 71.7 mg/dL 60, 63 LDL Cholesterol 122 mg/dL 60, 64 Comp Metabolic Panel 06/21/2014 Sodium 134 mmol/L 133-145 60 Potassium 4.4 mmol/L 3.5-5.0 60 Chloride 101 mmol/L 101-111 60 Co2 Carbon Dioxide 29 mmol/L 22-32 60 Anion Gap 4 mmol/L 2-11 60 Glucose 86 mg/dL 70-100 60 Blood Urea Nitrogen 16 mg/dL 6-24 60 Creatinine 0.65 mg/dL 0.51-0.95 60 BUN/Creatinine Ratio 24.6 High 8-20 60 Calcium 9.3 mg/dL 8.6-10.3 60 Total Protein 6.7 g/dL 6.4-8.9 60 Albumin 4.1 g/dL 3.2-5.2 60 Globulin 2.6 g/dL 2-4 60 Albumin/Globulin Ratio 1.6 1-3 60 Total Bilirubin 0.40 mg/dL 0.2-1.0 60 Alkaline Phosphatase 53 U/L 34-104 60 Alt 19 U/L 7-52 60 Ast 23 U/L 13-39 60 Egfr Non- 87.7 >60 60 Egfr 112.8 >60 60, 65 CBC Auto Diff 06/21/2014 White Blood Count 6.2 10^3/uL 4.8-10.8 60 Red Blood Count 4.55 10^6/uL 4.0-5.4 60 Hemoglobin 15.3 g/dL 12.0-16.0 60 Hematocrit 45 % 35-47 60 Mean Corpuscular Volume 99 fL High 80-97 60 Mean Corpuscular Hemoglobin 34 pg High 27-31 60 Mean Corpuscular HGB Conc 34 g/dL 31-36 60 Red Cell Distribution Width 13 % 10.5-15 60 Platelet Count 247 10^3/uL 150-450 60 Mean Platelet Volume 8 um3 7.4-10.4 60 Abs Neutrophils 3.9 10^3/uL 1.5-7.7 60 Abs Lymphocytes 1.5 10^3/uL 1.0-4.8 60 Abs Monocytes 0.6 10^3/uL 0-0.8 60 Abs Eosinophils 0.1 10^3/uL 0-0.6 60 Abs Basophils 0.1 10^3/uL 0-0.2 60 Abs Nucleated RBC 0.01 10^3/uL 60 Granulocyte % 62.6 % 38-83 60 Lymphocyte % 24.2 % Low 25-47 60 Monocyte % 10.0 % High 1-9 60 Eosinophil % 2.0 % 0-6 60 Basophil % 1.2 % 0-2 60 Nucleated Red Blood Cells % 0.1 60 Laboratory test finding 06/21/2014 Vitamin B12 458 pg/mL 180-914 60, 66 Lipid Profile (Trig/Chol/HDL) 10/26/2013 Triglycerides 116 mg/dL 67 Cholesterol 205 mg/dL 68 HDL Cholesterol 68.8 mg/dL 69 LDL Cholesterol 113 mg/dL 70 Laboratory test finding 10/26/2013 CRP High Sensitivity 2.12 mg/L 71 TSH (Thyroid Stimulating Horm) 1.10 IU/mL 0.34-5.60 Laboratory test finding 10/10/2013 Troponin I 0.01 ng/mL <0.03 72 CBC Auto Diff 10/10/2013 White Blood Count 6.1 10^3/uL 4.8-10.8 Red Blood Count 4.63 10^6/uL 4.0-5.4 Hemoglobin 15.0 g/dL 12.0-16.0 Hematocrit 43 % 35-47 Mean Corpuscular Volume 93 fL 80-97 Mean Corpuscular Hemoglobin 32 pg High 27-31 Mean Corpuscular HGB Conc 35 g/dL 31-36 Red Cell Distribution Width 13 % 10.5-15 Platelet Count 235 10^3/uL 150-450 Mean Platelet Volume 7 um3 Low 7.4-10.4 Abs Neutrophils 3.5 10^3/uL 1.5-7.7 Abs Lymphocytes 1.9 10^3/uL 1.0-4.8 Abs Monocytes 0.6 10^3/uL 0-0.8 Abs Eosinophils 0 10^3/uL 0-0.6 Abs Basophils 0.1 10^3/uL 0-0.2 Abs Nucleated RBC 0.01 10^3/uL Granulocyte % 56.9 % 38-83 Lymphocyte % 30.5 % 25-47 Monocyte % 10.6 % High 1-9 Eosinophil % 0.8 % 0-6 Basophil % 1.2 % 0-2 Nucleated Red Blood Cells % 0.1 Comp Metabolic Panel 10/10/2013 Sodium 126 mmol/L Low 133-145 Potassium 4.1 mmol/L 3.7-5.6 Chloride 93 mmol/L Low 101-111 Co2 Carbon Dioxide 25 mmol/L 22-32 Anion Gap 8 mmol/L 2-11 Glucose 98 mg/dL 70-100 Blood Urea Nitrogen 9 mg/dL 6-24 Creatinine 0.72 mg/dL 0.51-0.95 BUN/Creatinine Ratio 12.5 8-20 Calcium 9.5 mg/dL 8.6-10.3 Total Protein 7.7 g/dL 6.4-8.9 Albumin 4.2 g/dL 3.2-5.2 Globulin 3.5 g/dL 2-4 Albumin/Globulin Ratio 1.2 1-3 Total Bilirubin 0.60 mg/dL 0.2-1.0 Alkaline Phosphatase 103 U/L 34-104 Alt 20 U/L 7-52 Ast 29 U/L 13-39 Egfr Non- 77.9 >60 Egfr 100.2 >60 73 Laboratory test finding 10/10/2013 Troponin I 0.00 ng/mL <0.03 74 Urine DIP 09/21/2013 Specific [place] 1.005 Low 1.01-1.02 Urine pH 6 5-6 Leukocytes NEG Neg Urine Nitrites NEG Neg Total Protein, Urine NEG Neg Urine Glucose NORM Norm Urine Ketones NEG Neg Urobilinogen NORM Norm Urine Bilirubin NEG Neg Urine Blood NEG Neg 1 Because ethnic data is not always readily available, this report includes an eGFR for both -Americans and non- Americans. The National Kidney Disease Education Program (NKDEP) does not endorse the use of the MDRD equation for patients that are not between the ages of 18 and 70, are , have extremes of body size, muscle mass, or nutritional status, or are non- or non-. According to the National Kidney Foundation, irrespective of diagnosis, the stage of the disease is based on the level of kidney function: Stage Description GFR(mL/min/1.73 m(2)) 1 Kidney damage with normal or decreased GFR 90 2 Kidney damage with mild decrease in GFR 60-89 3 Moderate decrease in GFR 30-59 4 Severe decrease in GFR 15-29 5 Kidney failure <15 (or dialysis) 2 Because ethnic data is not always readily available, this report includes an eGFR for both -Americans and non- Americans. The National Kidney Disease Education Program (NKDEP) does not endorse the use of the MDRD equation for patients that are not between the ages of 18 and 70, are , have extremes of body size, muscle mass, or nutritional status, or are non- or non-. According to the National Kidney Foundation, irrespective of diagnosis, the stage of the disease is based on the level of kidney function: Stage Description GFR(mL/min/1.73 m(2)) 1 Kidney damage with normal or decreased GFR 90 2 Kidney damage with mild decrease in GFR 60-89 3 Moderate decrease in GFR 30-59 4 Severe decrease in GFR 15-29 5 Kidney failure <15 (or dialysis) 3 Desirable <150 Borderline high 150-199 High 200-499 Very High >500 4 Desirable <200 Borderline high 200-239 High >239 5 Low <40 Desirable: 40-60 High: >60 6 Desirable: <100 mg/dL Near Optimal: 100-129 mg/dL Borderline High: 130-159 mg/dL High: 160-189 mg/dL Very High: >189 mg/dL 7 [id number] Because ethnic data is not always readily available, this report includes an eGFR for both -Americans and non- Americans. The National Kidney Disease Education Program (NKDEP) does not endorse the use of the MDRD equation for patients that are not between the ages of 18 and 70, are , have extremes of body size, muscle mass, or nutritional status, or are non- or non-. According to the National Kidney Foundation, irrespective of diagnosis, the stage of the disease is based on the level of kidney function: Stage Description GFR(mL/min/1.73 m(2)) 1 Kidney damage with normal or decreased GFR 90 2 Kidney damage with mild decrease in GFR 60-89 3 Moderate decrease in GFR 30-59 4 Severe decrease in GFR 15-29 5 Kidney failure <15 (or dialysis) 9 [facility] Severe Sepsis and Septic Shock Management Bundle Measure requires all lactic acids initially measuring >2.0 mmol/L be repeated. 10 Because ethnic data is not always readily available, this report includes an eGFR for both -Americans and non- Americans. The National Kidney Disease Education Program (NKDEP) does not endorse the use of the MDRD equation for patients that are not between the ages of 18 and 70, are , have extremes of body size, muscle mass, or nutritional status, or are non- or non-. According to the National Kidney Foundation, irrespective of diagnosis, the stage of the disease is based on the level of kidney function: Stage Description GFR(mL/min/1.73 m(2)) 1 Kidney damage with normal or decreased GFR 90 2 Kidney damage with mild decrease in GFR 60-89 3 Moderate decrease in GFR 30-59 4 Severe decrease in GFR 15-29 5 Kidney failure <15 (or dialysis) 11 SEE RESULT BELOW Name: TRISTIN CHOWDHURY : [address]: Papito Hernandez MD Acct: [id number] Unit: [id number] AGE: 80 Location: ED Re03/30/16 SEX: F Status: DEP ER SPEC: [id number] MORENA: 03/30/[address]: Maria A CHONG REQ: [id number] RECD: 03/30/16 STATUS: DIYA PAUL DR: Kathy Hernandez MD _ SOURCE: BLOOD,VENO SPDES: ORDERED: Blood Cult Procedure Result Reported Site Aerobic Culture Bottle Final 04/04/161746 ML No Growth Day 5 Anaerobic Culture Bottle Final 04/04/161746 ML No Growth Day 5 * ML - MAIN LAB ([facility]) . END OF REPORT * ML=Testing performed at Main Lab DEPARTMENT OF PATHOLOGY, [address] [place] [address] Yury Portillo M.D. Director [facility] # [id number] 12 Acute inflammation: >10.00 13 Because ethnic data is not always readily available, this report includes an eGFR for both -Americans and non- Americans. The National Kidney Disease Education Program (NKDEP) does not endorse the use of the MDRD equation for patients that are not between the ages of 18 and 70, are , have extremes of body size, muscle mass, or nutritional status, or are non- or non-. According to the National Kidney Foundation, irrespective of diagnosis, the stage of the disease is based on the level of kidney function: Stage Description GFR(mL/min/1.73 m(2)) 1 Kidney damage with normal or decreased GFR 90 2 Kidney damage with mild decrease in GFR 60-89 3 Moderate decrease in GFR 30-59 4 Severe decrease in GFR 15-29 5 Kidney failure <15 (or dialysis) 14 Therapeutic target for the treatment of diabetes Mellitus patients is <7% HBA1C, and in selective patients <6.0%.Please refer to [place] [employer] Diabetic care guidelines for further information. 15 Desirable <150 Borderline high 150-199 High 200-499 Very High >500 16 Desirable <200 Borderline high 200-239 High >239 17 Low <40 Desirable: 40-60 High: >60 18 Desirable: <100 mg/dL Near Optimal: 100-129 mg/dL Borderline High: 130-159 mg/dL High: 160-189 mg/dL Very High: >189 mg/dL 19 SEE RESULT BELOW Name: TRISTIN CHOWDHURY : [address]: Cj Ovalles MD Acct: [id number] Unit: [id number] AGE: 79 Location: [facility] Re03/15/15 SEX: F Status: REG REF SPEC: [id number] MORENA: 03/15/[address]: Cj Ovalles MD REQ: [id number] RECD: 03/15/15 STATUS: SOUT _ ORDERED: IRON STAIN, Decal, LEVEL IV/2 FINAL DIAGNOSIS 1. Bone marrow, left posterior iliac crest, aspirate smears and clot section: -- Normocellular bone marrow (15%) with preserved trilineage hematopoiesis, mildly increased polyclonal plasma cells (6.5%), and no morphologic or immunophenotypic evidence of a hematologic malignancy. 2. Bone marrow, left posterior iliac crest, core needle biopsy: -- Normocellular bone marrow (15%) with preserved trilineage hematopoiesis, mildly increased polyclonal plasma cells (6.5%), and no morphologic or immunophenotypic evidence of a hematologic malignancy. SPECIAL STUDIES Flow has been performed at [facility], [place], [place]. The testing reveals: FINAL DIAGNOSIS: Specimen Source: Bone marrow Flow cytometry immunophenotypic analysis: No evidence of an immunophenotypically aberrant cell population. Interpretative data: Blasts: less than 1% of gated events Lymphocytes: 20% of gated events B-cells: 4% of lymphocytes; kappa:lambda within normal limits T-cells/NK cells: No aberrant population detected. Plasma cells: polyclonal Markers tested: CD3, CD10, CD16, CD19, CD34, CD45, kappa surface light chains , lambda surface light chains, 7-AAD, CD38, CD138, cytoplasmic kappa light chains, cytoplasmic lambda light chains. CONTINUED ON NEXT PAGE * ML=Testing performed at Main Lab DEPARTMENT OF PATHOLOGY, [address] [place] [address] Yury Portillo M.D. Director [facility] # [id number] RUN DATE: 03/19/15 [facility] LAB LIVE PAGE 2 Patient: TRISTIN CHOWDHURY [id number] (Continued) SPECIAL STUDIES (Continued) SPECIAL STUDIES (Continued) Quality Assessment: Acceptable Viability: Acceptable Viable lymphocytes (7-AAD): 99% Specimen received within validated guidelines. A Montalvo-Giemsa stained slide prepared from the flow cytometry specimen was examined for quality purposes. Electronically signed by: Radha Carpenter MD Technical component performed by: [place] [address] Foil Operator: Papito Page II, MD, PhD. PRE-OPERATIVE DIAGNOSIS R76.8 GROSS DESCRIPTION 1. The specimen is received in formalin labeled, Clot L PIC, and consists of a 2.0 x 1.0 x 0.4 cm aggregate of red-brown rubbery blood clot, which is entirely submitted in one cassette. 2. The specimen is received in formalin labeled, Bone L PIC, consists of two red-brown bone cores measuring 0.3 x 0.2 cm and 0.5 x 0.2 cm. The specimen is entirely submitted in one cassette following decalcification. MICROSCOPIC DESCRIPTION A CBC and peripheral smear dated 03/15/15 were reviewed. The CBC data are as follows: WBC 6.5, RBC 4.86, hemoglobin 15.9, hematocrit 47, MCV 97, MCH 33, MCHC 34, RDW 13, platelets 233, absolute neutrophils 4.5, absolute lymphocytes 1.1, absolute monocytes 0.7, absolute eosinophils 0, absolute basophils 0.1, absolute nucleated erythrocytes 0.01. Review of the peripheral smear shows an adequate leukocyte count with unremarkable differential and leukocyte morphology. Platelets are adequate with unremarkable morphology. Hemoglobin is adequate with unremarkable erythrocyte morphology. CONTINUED ON NEXT PAGE * ML=Testing performed at Main Lab DEPARTMENT OF PATHOLOGY, [address] [place] [address] Yury Portillo M.D. Director [facility] # [id number] RUN DATE: 03/19/15 [facility] LAB LIVE PAGE 3 Patient: KISHA CHOWDHURYRICARDA Lee [id number] (Continued) MICROSCOPIC DESCRIPTION (Continued) MICROSCOPIC DESCRIPTION (Continued) The aspirate smears are spicular and cellular. A 200 cell count aspirate smear differential is as follows: blasts 0.5%, promyelocytes 0%, myelocytes 6%, metamyelocytes 6%, neutrophils 22%, monocytes 5.5%, eosinophils 3%, basophils 0%, erythroid elements 39%, lymphocytes 11.5%, plasma cells 6.5%. Blasts are not increased. Elements of granulocytic lineage demonstrate blast hole driller progression to mature forms. Erythroid maturation is predominantly normoblastic. Lymphocytes are not increased and demonstrate mature morphology. Plasma cells are mildly increased (6.5%) and demonstrate mature morphology. The clot section demonstrates approximately 15% cellularity. Trilineage hematopoiesis appears preserved. Megakaryocytes are adequate with unremarkable morphology. There is no evidence of a mononuclear infiltrative cell process. The iron-stained clot section, with appropriately reacting controls, shows adequate storage iron. The core needle biopsy specimen is fragmented and shows approximately 15% cellularity. Trilineage hematopoiesis appears preserved. Megakaryocytes are adequate with unremarkable morphology. There is no evidence of a mononuclear infiltrative cell process. Flow cytometry shows no evidence of an immunophenotypically abnormal cell population. Signed (signature on file) Radha Carpenter MD 11/24 1434 END OF REPORT * ML=Testing performed at [facility] Lab DEPARTMENT OF PATHOLOGY, [address] [place] [address] Yury Portillo M.D. Director [facility] # [id number] 20 FINAL DIAGNOSIS: Specimen Source: Bone marrow Flow cytometry immunophenotypic analysis: No evidence of an immunophenotypically aberrant cell population. Interpretative data: Blasts: less than 1% of gated events Lymphocytes: 20% of gated events B-cells: 4% of lymphocytes; kappa:lambda within normal limits T-cells/NK cells: No aberrant population detected. Plasma cells: polyclonal Markers tested: CD3, CD10, CD16, CD19, CD34, CD45, kappa surface light chains, lambda surface light chains, 7-AAD, CD38, CD138, cytoplasmic kappa light chains, cytoplasmic lambda light chains. Quality Assessment: Acceptable Viability: Acceptable Viable lymphocytes (7-AAD): 99% Specimen received within validated guidelines. A Montalvo-Giemsa stained slide prepared from the flow cytometry specimen was examined for quality purposes. Electronically signed by: Radha Carpenter MD Technical component performed by: [place] [address] Foil Operator: Papito Page II, MD, PhD. 21 RESULT: Left posterior iliac crest 22 RESULT: abnormal immunological findings in serum 23 RESULT: Culture without mitogens 24 Band Resolution: <400 Stain Name Cells Analyzed Cells Cells Counted Karyotyped GTL 20 0 2 Total 20 0 8 25 No clonal abnormality was apparent. Plasma cell FISH studies did not identify a sufficient number of plasma cells (reported separately). PDF Report available at: [email or web address] 26 RESULT: Yury Mijares, Ph.D. Test Performed by: [place] [address] Foil Operator: Papito Page II, M.D., Ph.D. 27 RESULT: Left posterior iliac crest 28 RESULT: abnormal immunological findings in serum 29 Locus and probes [Strategy;#Nuclei;Class] 11q13(CCND1-XT),14q32(IGH-XT) [DFISH;50;ASR] 14q32(3'IGH,5'IGH) [BAP;50;LDT] Probe strategies include: DFISH=dual color, double fusion; BAP=break-apart probe. 30 RESULT: No plasma cells were observed. 31 No plasma cells were observed using the cytoplasmic immunoglobulin staining method. This result does not exclude the presence of a plasma cell proliferative disorder. Chromosome studies are pending and reported separately. PDF Report available at: [email or web address] 32 Applicable to Analyte Specific Reagent (ASR) and Laboratory Developed Tests (LDT). This test was developed and its performance characteristics determined by [facility]. It has not been cleared or approved by the U.S. Food and Drug Administration. This FISH test does not rule out other chromosome abnormalities. 33 RESULT: Yury Mijares, Ph.D. Test Performed by: [place] [address] Foil Operator: Papito Page II, M.D., Ph.D. 34 [facility] Severe Sepsis and Septic Shock Management Bundle Measure requires all lactic acids initially measuring >2.0mmol/L be repeated. 35 Because ethnic data is not always readily available, this report includes an eGFR for both -Americans and non- Americans. The National Kidney Disease Education Program (NKDEP) does not endorse the use of the MDRD equation for patients that are not between the ages of 18 and 70, are , have extremes of body size, muscle mass, or nutritional status, or are non- or non-. According to the National Kidney Foundation, irrespective of diagnosis, the stage of the disease is based on the level of kidney function: Stage Description GFR(mL/min/1.73 m(2)) 1 Kidney damage with normal or decreased GFR 90 2 Kidney damage with mild decrease in GFR 60-89 3 Moderate decrease in GFR 30-59 4 Severe decrease in GFR 15-29 5 Kidney failure <15 (or dialysis) 36 Acute inflammation: >10.00 37 Reference Range and Interpretation: TnI (ng/mL) Interpretation Less Than 0.03 ng/mL Not supportive of diagnosis of [place] 0.03 - 0.50 ng/mL Indeterminate: suggest serial studies if clinically indicated. Greater than 0.5 ng/mL Consistent with diagnosis of MT 38 Test Performed by: [place] [address] Foil Operator: Papito Page II, M.D., Ph.D. 39 REFERENCE VALUE 1.21 - 2.70 Test Performed by: [place] [address] Foil Operator: Papito Page II, M.D., Ph.D. 40 REFERENCE VALUE 0.3300-1.94 41 REFERENCE VALUE 0.5700-2.63 42 REFERENCE VALUE 0.2600-1.65 Test Performed by: [place] [address] Foil Operator: Papito Page II, M.D., Ph.D. 43 Because ethnic data is not always readily available, this report includes an eGFR for both -Americans and non- Americans. The National Kidney Disease Education Program (NKDEP) does not endorse the use of the MDRD equation for patients that are not between the ages of 18 and 70, are , have extremes of body size, muscle mass, or nutritional status, or are non- or non-. According to the National Kidney Foundation, irrespective of diagnosis, the stage of the disease is based on the level of kidney function: Stage Description GFR(mL/min/1.73 m(2)) 1 Kidney damage with normal or decreased GFR 90 2 Kidney damage with mild decrease in GFR 60-89 3 Moderate decrease in GFR 30-59 4 Severe decrease in GFR 15-29 5 Kidney failure <15 (or dialysis) 44 Test Performed by: [place] [address] Foil Operator: Papito Page II, M.D., Ph.D. 45 Yury Portillo 46 M-spike in gamma fraction. See Immunofixation. Test Performed by: [place] [address] Foil Operator: Papito Page II, M.D., Ph.D. 47 Monoclonal IgM kappa. C/W MGUS, lymphoproliferative disease, amyloidosis, etc. Suggest 24-hr urine Monoclonal Protein Studies. Suggest Immunoglobulin Free Light Chains, Serum Test Performed by: [place] [address] Foil Operator: Papito Page II, M.D., Ph.D. 48 Serologic response to B. burgdorferi infection is not detected, but cannot rule out early infection during which low or undetectable antibody levels to B. burgdorferi may be present. If clinically indicated, a new serum specimen should be submitted in 7-14 days. Test Performed by: [place] [address] Foil Operator: Papito Page II, M.D., Ph.D. 49 PT IS FASTING 50 PT IS FASTING 51 PT IS FASTING 52 Normal Range 180 to 914 Indeterminate Range 145 to 180 Deficient Range <145 53 PT IS FASTING 54 REFERENCE VALUE <=13 (Fasting) Test Performed by: [place] [address] Foil Operator: Papito Page II, M.D., Ph.D. 55 Because ethnic data is not always readily available, this report includes an eGFR for both -Americans and non- Americans. The National Kidney Disease Education Program (NKDEP) does not endorse the use of the MDRD equation for patients that are not between the ages of 18 and 70, are , have extremes of body size, muscle mass, or nutritional status, or are non- or non-. According to the National Kidney Foundation, irrespective of diagnosis, the stage of the disease is based on the level of kidney function: Stage Description GFR(mL/min/1.73 m(2)) 1 Kidney damage with normal or decreased GFR 90 2 Kidney damage with mild decrease in GFR 60-89 3 Moderate decrease in GFR 30-59 4 Severe decrease in GFR 15-29 5 Kidney failure <15 (or dialysis) 56 >100 to <200 pg/mL: likely compensated congestive heart failure (CHF) 200 to 400 pg/mL: likely moderate CHF >400 pg/mL: likely moderate to severe CHF 57 Because ethnic data is not always readily available, this report includes an eGFR for both -Americans and non- Americans. The National Kidney Disease Education Program (NKDEP) does not endorse the use of the MDRD equation for patients that are not between the ages of 18 and 70, are , have extremes of body size, muscle mass, or nutritional status, or are non- or non-. According to the National Kidney Foundation, irrespective of diagnosis, the stage of the disease is based on the level of kidney function: Stage Description GFR(mL/min/1.73 m(2)) 1 Kidney damage with normal or decreased GFR 90 2 Kidney damage with mild decrease in GFR 60-89 3 Moderate decrease in GFR 30-59 4 Severe decrease in GFR 15-29 5 Kidney failure <15 (or dialysis) 58 Reference Range and Interpretation: TnI (ng/mL) Interpretation Less Than 0.03 ng/mL Not supportive of diagnosis of MT 0.03 - 0.50 ng/mL Indeterminate: suggest serial studies if clinically indicated. Greater than 0.5 ng/mL Consistent with diagnosis of MT 59 Because ethnic data is not always readily available, this report includes an eGFR for both -Americans and non- Americans. The National Kidney Disease Education Program (NKDEP) does not endorse the use of the MDRD equation for patients that are not between the ages of 18 and 70, are , have extremes of body size, muscle mass, or nutritional status, or are non- or non-. According to the National Kidney Foundation, irrespective of diagnosis, the stage of the disease is based on the level of kidney function: Stage Description GFR(mL/min/1.73 m(2)) 1 Kidney damage with normal or decreased GFR 90 2 Kidney damage with mild decrease in GFR 60-89 3 Moderate decrease in GFR 30-59 4 Severe decrease in GFR 15-29 5 Kidney failure <15 (or dialysis) 60 FASTING 61 Desirable <150 Borderline high 150-199 High 200-499 Very High >500 62 Desirable <200 Borderline high 200-239 High >239 63 Low <40 Desirable: 40-60 High: >60 64 Desirable: <100 mg/dL Near Optimal: 100-129 mg/dL Borderline High: 130-159 mg/dL High: 160-189 mg/dL Very High: >189 mg/dL 65 Because ethnic data is not always readily available, this report includes an eGFR for both -Americans and non- Americans. The National Kidney Disease Education Program (NKDEP) does not endorse the use of the MDRD equation for patients that are not between the ages of 18 and 70, are , have extremes of body size, muscle mass, or nutritional status, or are non- or non-. According to the National Kidney Foundation, irrespective of diagnosis, the stage of the disease is based on the level of kidney function: Stage Description GFR(mL/min/1.73 m(2)) 1 Kidney damage with normal or decreased GFR 90 2 Kidney damage with mild decrease in GFR 60-89 3 Moderate decrease in GFR 30-59 4 Severe decrease in GFR 15-29 5 Kidney failure <15 (or dialysis) 66 Normal Range 180 to 914 Indeterminate Range 145 to 180 Deficient Range <145 67 Desirable <150 Borderline high 150-199 High 200-499 Very High >500 68 Desirable <200 Borderline high 200-239 High >239 69 Low <40 Desirable: 40-60 High: >60 70 Desirable <100 Near Optimal 100-129 Borderline high 130-159 High 160-189 Very High >189 71 Low risk: <1.00 Average risk: 1.00-3.00 High risk: >3.00 72 Reference Range and Interpretation: TnI (ng/mL) Interpretation Less Than 0.03 ng/mL Not supportive of diagnosis of MT 0.03 - 0.50 ng/mL Indeterminate: suggest serial studies if clinically indicated. Greater than 0.5 ng/mL Consistent with diagnosis of MT 73 Because ethnic data is not always readily available, this report includes an eGFR for both -Americans and non- Americans. The National Kidney Disease Education Program (NKDEP) does not endorse the use of the MDRD equation for patients that are not between the ages of 18 and 70, are , have extremes of body size, muscle mass, or nutritional status, or are non- or non-. According to the National Kidney Foundation, irrespective of diagnosis, the stage of the disease is based on the level of kidney function: Stage Description GFR(mL/min/1.73 m(2)) 1 Kidney damage with normal or decreased GFR 90 2 Kidney damage with mild decrease in GFR 60-89 3 Moderate decrease in GFR 30-59 4 Severe decrease in GFR 15-29 5 Kidney failure <15 (or dialysis) 74 Reference Range and Interpretation: TnI (ng/mL) Interpretation Less Than 0.03 ng/mL Not supportive of diagnosis of MT 0.03 - 0.50 ng/mL Indeterminate: suggest serial studies if clinically indicated. Greater than 0.5 ng/mL Consistent with diagnosis of MT Procedures Date CPT Code Description Status 06/28/2014 87515 EKG, at Least 12 Leads w/Interpretation and Report Completed 07/09/2013 Mammogram Completed 05/10/2011 Colonoscopy Completed Encounters Type Date Location Provider CPT E/M Dx Office Visit 04/05/2017 11:45a [place] [address] I10 Office Visit 03/13/2017 10:30a Main Office Kathy Dai M.D., R.D. 44480 I10 F41.9 Office Visit 02/25/2017 10:15a Main Office Kathy Dai M.D., R.D. 00729 I10 F41.9 Office Visit 01/03/2017 10:15a [place] [address] M54.5 Office Visit 11/26/2016 10:15a Main Office Kathy Dai M.D., R.D. 11930 I10 F41.9 Office Visit 10/03/2016 4:15p [place] [address] I10 T46.1x5A Office Visit 08/24/2016 9:30a Main Office Kathy Dai M.D., R.D. G0439 Z00.00 I10 F41.9 R06.6 H26.9 Office Visit 05/07/2016 11:00a Main Office Gabefaith QuezadaCathi Graff, [facility] 67268 R10.9 Office Visit 05/03/2016 2:15p Main Office Chidi Graff, [facility] 40170 K59.00 Office Visit 03/30/2016 10:15a Main Office Kathy Dai M.D., R.DCathi 30622 L03.113 Office Visit 02/27/2016 10:15a Main Office Kathy Dai M.D., R.DCathi 44458 S06.360A Office Visit 11/28/2015 10:15a Main Office Kathy Dai M.D., R.DCathi 29167 M81.0 R14.0 Z23 Office Visit 07/11/2015 10:45a Main Office Kathy Dai M.D., R.D. G0439 Z00.00 I10 F41.9 E87.1 Office Visit 05/18/2015 10:45a Main Office Kathy Dai M.D., R.DCathi 80208 I10 F41.9 Office Visit 04/18/2015 10:30a Main Office Kathy Dai M.D., R.D. 55226 I10 F41.9 Office Visit 04/06/2015 3:15p Main Office Kathy Dai M.D., R.DCathi 16091 I10 F41.9 Office Visit 03/24/2015 10:15a Main Office Kathy Dai M.D., R.DCathi 31238 I10 F41.9 Office Visit 03/08/2015 3:30p Main Office Rio Garcia III, [facility] 60457 G50.1 Office Visit 12/13/2014 3:15p Main Office Kathy Dai M.D., R.DCathi 14563 R10.10 Z23 276.1 Office Visit 11/17/2014 11:15a Main Office Kathy Dai M.D., R.D. 13345 401.9 300.00 Office Visit 10/27/2014 12:00p Main Office Kathy Dai M.D., R.Rosario 51659 401.9 300.00 276.1 Office Visit 10/21/2014 10:30a Main Office Kathy Dai M.D., R.DCathi 57262 401.9 300.00 276.1 Office Visit 10/14/2014 12:30p Main Office Kathy Dai M.D., R.DCathi 32329 401.9 300.00 276.1 Office Visit 10/07/2014 10:00a Main Office Chidi Graff [facility] 98535 401.9 Office Visit 09/09/2014 10:15a Main Office Kathy Dai M.D., R.DCathi 66929 781.2 401.9 959.01 Office Visit 06/28/2014 9:30a Main Office Kathy Dai M.D., R.DCathi G0439 V70.0 401.9 300.00 786.59 840.9 E885.9 Office Visit 05/13/2014 11:15a Main Office Kathy Dai M.D., R.DCathi 33384 781.2 Office Visit 11/02/2013 10:15a Main Office Kathy Dai M.D., R.DCathi 53547 300.00 Office Visit 10/21/2013 11:30a Main Office Kathy Dai M.D., R.DCathi 18415 300.00 Office Visit 09/21/2013 10:30a Main Office Kathy Dai M.D., R.DCathi 48524 366.9 401.9 300.00 Plan of Care Future Appointment(s):08/26/2017 1:45 pm - Kathy Dai M.D., R.D. at Main [facility]604/05/2017 - Al Whaley MDI10 Essential (primary) hypertensionComments:-Her BP is not well controlled on her current regimen of Atenolol 25mg 1/2 tab in the am and full tab in pm, Lisinopril 40mg at night. Atenolol previously dropped her pulse too low, and has been stableon current dose.Lisinopril previously increased her potassium level, but has been stable on the current dose.-Plan add hydrochlorothiazide. -Discussed following with Dr. Quigley to help with concerns for walking/mobility. -Patient observed walking out of the office with use of her cane. Patient with difficulty walking without holding on to the side rails and eventually using staff's arm "because it's quicker." Shuffling gait noted.Recommendations:-In the morning, take 1/2 tablet of Atenolol and the new medication, Hydrochlorothiazide. This was sent to your pharmacy. -In the evening, take a full tablet of Atenolol and Lisinopril that you have been doing. -Check your blood pressure at home and write down the numbers over the next several days. -Continue activity as you feel like doing.
--- OUTSIDE RECORDS SUMMARY | 2017-04-10 21:00 | XMS REPORT ---
:1935 External Reference #:[id number] Author Organization [facility] Address [address] [place] [address] Phone [phone] Care Team Providers Name Role Phone Kathy Dai M.D., R.D. 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 Another son is a little further away. [...] Form Strength Qnty SIG Indications Ordering Provider Atenolol 11/28 Active Tablets 25mg 135ta take one bs tablet by julien Dai M.D., every R.D. night Lisinopril 04/18 Active Tablets 30mg 90tab take one Kathy s tablet by julien Dai M.D., every day R.D. Buspirone HCL 11/17 Active Tablets 10mg 180ta Take One bs Tablet By Julien Dai M.D., Twice A R.D. Day Aspir-81 09/21 Active Tablets 81mg 30tab [address] celia Dai, every day MKenneth, R.D. Calcium 1000 + D 09/21 Active Tablets 1000-800m 1 po bid g-Unit Cliff Dai, R.D. Fish Oil 09/21 Active Capsules 1000mg 1 by julien Dai, every day M.DCathi, R.D. Multivitamins 09/21 Active Capsules 90cap 1 by celia Dai, every day MKenneth, R.D. Vitamin C 09/21 Active 1 by julien Dai, every day M.DCathi, R.D. Zetia 09/21 Active Tablets 10mg 90tab take celia one/half Suhas tablet by Cliff, mouth R.D. daily Metoprolol Succinate 11/26 Hx Tablets 50mg 30tab 1 by Kathy ER 24HR celia Dai, - every day MKenneth, 11/28 R.D. Hydrochlorothiazide 10/03 Hx Tablets 25mg 30tab 1 by Al celia Whaley - every day , 10/03 Metoprolol Tartrate 09/26 Hx Tablets 25mg 60tab take one s tablet by Suhas - julien Coronado, 09/26 twice a R.D. /2016 day Metoprolol Succinate 09/26 Hx Tablets 100-12.5m Kathy ER/Hydrochlorothiazi ER 24HR Spencer - Cliff, 09/26 R.D. Metoprolol Tartrate 09/26 Hx Tablets 25mg take one tablet by Suhas - julien Coronado, 09/26 twice a R.D. day Amlodipine Besylate 09/26 Hx Tablets 2.5mg 90tab 1 by celia Dai, - every day M.Rosario, 03/13 R.D. /2017 Lisinopril 08/24 Hx Tablets 40mg 30tab 1 by s mouth Suhas, - every day M.D., 09/02 R.D. /2016 Miralax 05/03 Hx Powder [id number] 238gm as K59.00 Shawnti needed, 1 RCathi Graff, - heaping PATTERNMAKER BENCH-C 03/13 teaspoon by mouth daily for stools Ativan 02/26 Hx Tablets 1mg 15tab 1 by F41.9 s mouth Suhas, - twice a M.D., 03/30 day R.D. /2016 Fosamax 09/18 Hx Tablets 70mg 13tab one every s week on [place] - MD siobhan 11/27 do not lie down for at least 1/2 hour after taking Lisinopril 04/06 Hx Tablets 40mg 30tab 1 by s mouth Suhas, - every day M.D., 04/18 R.D. /2015 Lexapro 04/06 Hx Tablets 10mg 30tab 1/2 [...] Lisinopril 10/07 Hx Tablets 10mg 45tab 1 /2 by s mouth Suhas, - every day M.D., 11/17 R.D. /2014 Lisinopril 09/21 Hx Tablets 5mg 90tab 1 by s mouth Suhas, - every day M.D., 10/07 R.D. /2014 Buspirone HCL 09/21 Hx Tablets 7.5mg 180ta Take One bs Tablet By Maru Dai M.D., 11/17 Twice A R.D. /2014 Day Atenolol 09/21 Hx Tablets 25mg 135ta take one bs tablet by Maru Dai M.D., 11/26 every in R.D. the morning and 1/2 tablet by mouth every at night Immunizations CPT Code Status Date Vaccine Lot # [id number] Given 11/24/2016 Influenza Virus Vaccine, Quadrivalent, 3 Yr > Quad, Preserv Free 75991 Given 11/28/2015 Influenza Virus Vaccine, Quadrivalent, 3 Yr > [id number] Quad, Preserv Free 15134 Given 12/13/2014 Prevnar-13 Pneumococcal Conjugate Vaccine [id number] 31404 Given 12/13/2014 Influenza Vaccine High Dose PF [id number] 98646 Given 12/16/2013 Influenza Vaccine High Dose PF [id number] 99398 Given 10/10/2007 Zoster Vaccine [id number] Given 09/09/2007 Tdap (Adacel) 65644 Given 07/09/2002 Pneumovax 23 (PPSV23) 65+ years or high risk 2 to 64 year old Vital Signs Date Vital Result Comment 03/13/2017 Weight 131.00 lb Weight in kg's [...] in kg's 54.432 BP Systolic 160 mmHg brnd163/81 BP Diastolic 80 mmHg ngjg104/81 Heart Rate 68 /min auto71 09/09/2014 Weight [...] High 5-6 Urine Blood neg Neg Specific [place] 1.010 1.01-1.02 Urine Ketones neg Neg Urine [...] Non- 85.5 >60 Egfr 110.0 >60 1 Laboratory test finding 08/29/2016 Vitamin D Total 25(Oh) 38.2 ng/mL 30- 50 2 CBC Auto Diff 08/29/2016 White Blood Count [...] 0-2 Nucleated Red Blood Cells % 0.3 Lipid Profile (Trig/Chol/HDL) 08/29/2016 Triglycerides 90 mg/dL 3 Cholesterol 200 mg/dL 4 HDL Cholesterol 69.6 mg/dL 5 LDL Cholesterol 112 mg/dL 6 Comp Metabolic Panel 08/29/2016 Sodium 131 mmol/L [...] Egfr Non- 82.8 >60 Egfr 106.5 >60 7 Basic Metabolic Panel 05/07/2016 Sodium 128 [...] High 5-6 Urine Blood NEG Neg Specific [place] 1.005 Low 1.01-1.02 Urine Ketones NEG Neg [...] TSH (Thyroid 1.01 ?IU/mL 0.34-5.60 Stimulating Horm) Comp Metabolic Panel 02/23/2015 Sodium 131 mmol/L [...] Egfr Non- 79.0 >60 Egfr 101.6 >60 38 Whitmer/Lambda Free Light Chains 02/23/2015 Whitmer Free Light Chain 1.83 mg/dL 39 Ser Lambda Free Light Chain 1.18 mg/dL 40 Whitmer/Lambda Free Light Chain 1.55 41 Laboratory test finding 02/23/2015 Beta 2 Microglobulin 2.11 g/mL 42 Immunoglobulins Serum 02/23/2015 Immunoglobulin G 998 mg/dL 767 - 1590 43 Quant Immunoglobulin M 561 mg/dL 37 - 286 Immunoglobulin A 138 mg/dL 61 - 356 CBC Auto Diff 02/08/2015 White Blood Count [...] Blood Cells % 0.2 Laboratory test finding 02/08/2015 Lyme Disease Serology Negative Negative 44 Protein Electrophoresis 02/08/2015 Total Protein(Pep) 7.6 g/dL 6.3 - 7.9 Albumin 3.6 g/dL 3.4-4.7 Alpha-1 Globulin 0.3 g/dL 0.1-0.3 Alpha-2 Globulin 1.3 g/dL 0.6-1.0 Beta Globulin 0.9 g/dL 0.7-1.2 Gamma Globulin 1.6 g/dL 0.6-1.6 Albumin/Globulin Ratio 0.88 M [place] 0.9 g/dL Impression See Comment 45 Immunofixation See Comment 46 Suzan Hep-2 02/08/2015 Suzan Pattern Homogeneous Negative Suzan Titer 1:2560 <1:80 Suzan Reviewed By MD Yury Momin <SEE NOTE> 47 Arthritis Panel 02/08/2015 Uric Acid 3.2 mg/dL 2.3-6.6 Erythrocyte Sed Rate 24 mm/Hr 0-40 Suzan (Anti-Nuclear AB) Screen Reflexed to FA Negative Rheumatoid Factor <15 IU/mL <15 48 Laboratory test finding 02/01/2015 Glucose 87 mg/dL [...] Color Straw Urine Appearance Clear Urine Specific [place] 1.006 Low 1.010-1.030 Urine pH 7.0 5-9 [...] 108.9 >60 59 Urine DIP 06/28/2014 Specific [place] 1.005 Low 1.01-1.02 Urine pH 8 High [...] Vitamin B12 458 pg/mL 180-914 60, 66 Laboratory test finding 10/26/2013 CRP High Sensitivity 2.12 mg/L 67 TSH (Thyroid Stimulating Horm) 1.10 IU/mL 0.34-5.60 Lipid Profile (Trig/Chol/HDL) 10/26/2013 Triglycerides 116 mg/dL 68 Cholesterol 205 mg/dL 69 HDL Cholesterol 68.8 mg/dL 70 LDL Cholesterol 113 mg/dL 71 Laboratory test finding 10/10/2013 Troponin I 0.01 [...] ng/mL <0.03 74 Urine DIP 09/21/2013 Specific [place] 1.005 Low 1.01-1.02 Urine pH 6 5-6 [...] 5 Kidney failure <15 (or dialysis) 2 [id number] 3 Desirable <150 Borderline high 150-199 High 200-499 Very High >500 4 Desirable <200 Borderline high 200-239 High >239 5 Low <40 Desirable: 40-60 High: >60 6 Desirable: <100 mg/dL Near Optimal: 100-129 mg/dL Borderline High: 130-159 mg/dL High: 160-189 mg/dL Very High: >189 mg/dL 7 Because ethnic data is not always readily [...] 15-29 5 Kidney failure <15 (or dialysis) 8 Because ethnic data is not always [...] 5 Kidney failure <15 (or dialysis) 9 MDS Severe Sepsis and Septic Shock Management Bundle [...] [address]: Papito Hernandez MD Acct: [id number] Unit: [id number] AGE: 80 Location: ED Re03/30/16 SEX: F Status: DEP ER SPEC: [id number] MORENA: 03/30/[address]: Maria A CHONG REQ: [id number] RECD: 03/30/16 STATUS: DIYA PAUL DR: Kathy Hernandez MD _ SOURCE: BLOOD,VENO SPDESC: ORDERED: Blood Cult Procedure Result Reported Site Aerobic Culture Bottle Final 04/04/16- 7 ML No Growth Day 5 Anaerobic Culture Bottle Final 04/04/16- 1746 ML No Growth Day 5 * ML - MAIN LAB (PSC1) . END OF REPORT * ML=Testing performed at Main Lab DEPARTMENT OF PATHOLOGY, [address] [place] [address] Yury Portillo M.D. Director [facility] # [id number] 12 Acute inflammation: >10.00 13 Because ethnic [...] and in selective patients <6.0%.Please refer to [place] [employer] Diabetic care guidelines for further [...] [address]: Cj Ovalles MD Acct: [id number] Unit: [id number] AGE: 79 Location: [facility] Re03/15/15 SEX: F Status: REG REF SPEC: [id number] MORENA: 03/15/[address]: Cj Ovalles MD REQ: [id number] RECD: 03/15/15 STATUS: SOUT _ ORDERED: IRON [...] SPECIAL STUDIES Flow has been performed at [place], [place]. The testing reveals: FINAL DIAGNOSIS: Specimen [...] performed at Main Lab DEPARTMENT OF PATHOLOGY, [address] [place] [address] Yury Portillo M.D. Director [facility] # [id number] RUN DATE: 03/19/15 [facility] LAB LIVE PAGE 2 Patient: TRISTIN CHOWDHURY Jesus [id number] (Continued) SPECIAL STUDIES (Continued) SPECIAL STUDIES (Continued) Quality Assessment: Acceptable Viability: Acceptable Viable lymphocytes (7-AAD): 99% Specimen received within validated guidelines. A Montalvo-Giemsa stained slide prepared from the flow cytometry specimen was examined for quality purposes. Electronically signed by: Radha Carpenter MD Technical component performed by: [place] [address] Motor Vehicle Compliance Analyst: Papito Page II, MD, PhD. PRE-OPERATIVE DIAGNOSIS [...] performed at Main Lab DEPARTMENT OF PATHOLOGY, [address] [place] [address] Yury Portillo M.D. Director [facility] # [id number] RUN DATE: 03/19/15 [facility] LAB LIVE PAGE 3 Patient: TRISTIN CHOWDHURY [id number] (Continued) MICROSCOPIC DESCRIPTION (Continued) MICROSCOPIC DESCRIPTION (Continued) The aspirate smears are spicular and cellular. A 200 cell count aspirate smear differential is as follows: blasts 0.5%, promyelocytes 0%, myelocytes 6%, metamyelocytes 6%, neutrophils 22%, monocytes 5.5%, eosinophils 3%, basophils 0%, erythroid elements 39%, lymphocytes 11.5%, plasma cells 6.5%. Blasts are not increased. Elements of granulocytic lineage demonstrate batch plant supervisor progression to mature forms. Erythroid maturation is [...] performed at Main Lab DEPARTMENT OF PATHOLOGY, [address] [place] [address] Yury Portillo M.D. Director [facility] # [id number] 20 FINAL DIAGNOSIS: Specimen Source: Bone marrow [...] Radha Carpenter MD Technical component performed by: [facility] [place] [address] Motor Vehicle Compliance Analyst: Papito Page II, MD, PhD. 21 RESULT: [...] cells (reported separately). PDF Report available at: [email or web address] 26 RESULT: Yury Mijares, Ph.D. Test Performed by: [place] [address] Motor Vehicle Compliance Analyst: Papito Page II, M.D., Ph.D. 27 RESULT: [...] and reported separately. PDF Report available at: [email or web address] 32 Applicable to Analyte Specific Reagent (ASR) and Laboratory Developed Tests (LDT). This test was developed and its performance characteristics determined by [facility]. It has not been cleared or approved by the U.S. Food and Drug Administration. This FISH test does not rule out other chromosome abnormalities. 33 RESULT: Yury Mijares, Ph.D. Test Performed by: [place] [address] Motor Vehicle Compliance Analyst: Papito Page II, M.D., Ph.D. 34 [facility] Severe Sepsis and Septic Shock Management Bundle [...] 0.03 ng/mL Not supportive of diagnosis of [place] 0.03 - 0.50 ng/mL Indeterminate: suggest serial studies if clinically indicated. Greater than 0.5 ng/mL Consistent with diagnosis of [place] 38 Because ethnic data is not always readily [...] 15-29 5 Kidney failure <15 (or dialysis) 39 REFERENCE VALUE 0.3300-1.94 40 REFERENCE VALUE 0.5700-2.63 41 REFERENCE VALUE 0.2600-1.65 Test Performed by: [place] [address] Motor Vehicle Compliance Analyst: Papito Page II, M.D., Ph.D. 42 REFERENCE VALUE 1.21 - 2.70 Test Performed by: [place] [address] Motor Vehicle Compliance Analyst: Papito Page II, M.D., Ph.D. 43 Test Performed by: [place] [address] Motor Vehicle Compliance Analyst: Papito Page II, M.D., Ph.D. 44 Serologic response to B. burgdorferi infection is not detected, but cannot rule out early infection during which low or undetectable antibody levels to B. burgdorferi may be present. If clinically indicated, a new serum specimen should be submitted in 7-14 days. Test Performed by: [place] [address] Motor Vehicle Compliance Analyst: Papito Page II, M.D., Ph.D. 45 M-spike in gamma fraction. See Immunofixation. Test Performed by: [place] [address] Motor Vehicle Compliance Analyst: Papito Page II, M.D., Ph.D. 46 Monoclonal IgM kappa. C/W MGUS, lymphoproliferative disease, amyloidosis, etc. Suggest 24-hr urine Monoclonal Protein Studies. Suggest Immunoglobulin Free Light Chains, Serum Test Performed by: [address] [place] [address] Motor Vehicle Compliance Analyst: Papito Page II, M.D., Ph.D. 47 Yury Portillo 48 Test Performed by: [address] [address] Motor Vehicle Compliance Analyst: Papito Page II, M.D., Ph.D. 49 PT IS FASTING 50 PT IS FASTING 51 PT IS FASTING 52 Normal Range 180 to 914 Indeterminate Range 145 to 180 Deficient Range <145 53 PT IS FASTING 54 REFERENCE VALUE <=13 (Fasting) Test Performed by: [place] [address] Motor Vehicle Compliance Analyst: Papito Page II, M.D., Ph.D. 55 Because [...] 0.03 ng/mL Not supportive of diagnosis of [place] 0.03 - 0.50 ng/mL Indeterminate: suggest serial studies if clinically indicated. Greater than 0.5 ng/mL Consistent with diagnosis of [place] 59 Because ethnic data is not always [...] 145 to 180 Deficient Range <145 67 Low risk: <1.00 Average risk: 1.00-3.00 High risk: >3.00 68 Desirable <150 Borderline high 150-199 High 200-499 Very High >500 69 Desirable <200 Borderline high 200-239 High >239 70 Low <40 Desirable: 40-60 High: >60 71 Desirable <100 Near Optimal 100-129 Borderline high 130-159 High 160-189 Very High >189 72 Reference Range and Interpretation: TnI (ng/mL) Interpretation Less Than 0.03 ng/mL Not supportive of diagnosis of [place] 0.03 - 0.50 ng/mL Indeterminate: suggest serial studies if clinically indicated. Greater than 0.5 ng/mL Consistent with diagnosis of [place] 73 Because ethnic data is not always [...] 0.03 ng/mL Not supportive of diagnosis of KS 0.03 - 0.50 ng/mL Indeterminate: suggest serial studies if clinically indicated. Greater than 0.5 ng/mL Consistent with diagnosis of KS Procedures Date CPT Code Description Status 06/28/2014 76509 EKG, at Least 12 Leads w/Interpretation and Report Completed 07/09/2013 Mammogram Completed 05/10/2011 Colonoscopy Completed Encounters Type Date Location Provider CPT E/M Dx Office Visit 01/03/2017 10:15a [place] [address] M54.5 Office Visit 11/26/2016 10:15a Main Office Kathy Dai M.D., R.D. 86048 I10 F41.9 Office Visit 10/03/2016 4:15p [place] [address] I10 T46.1x5A Office Visit 08/24/2016 9:30a Main Office Kathy Dai M.D., R.D. G0439 Z00.00 I10 F41.9 R06.6 H26.9 Office Visit 05/07/2016 11:00a Main Office KAVITHA Maldonado-C 03692 R10.9 Office Visit 05/03/2016 2:15p Main Office KAVITHA Maldonado-C 72432 K59.00 Office Visit 03/30/2016 10:15a Main Office Kahty Dai M.D., R.D. 93425 L03.113 Office Visit 02/27/2016 10:15a Main Office Kathy Dai M.D., R.D. 80452 S06.360A Office Visit 11/28/2015 10:15a Main Office Kathy Dai M.D., R.D. 41343 M81.0 R14.0 Z23 Office Visit 07/11/2015 10:45a Main Office Kathy Dai M.D., R.D. G0439 Z00.00 I10 F41.9 E87.1 Office Visit 05/18/2015 10:45a Main Office Kathy Dai M.D., R.DCathi 30304 I10 F41.9 Office Visit 04/18/2015 10:30a Main Office Kathy Dai M.D., R.Rosario 44943 I10 F41.9 Office Visit 04/06/2015 3:15p Main Office Kathy Dai M.D., Pilar.Rosario 11016 I10 F41.9 Office Visit 03/24/2015 10:15a Main Office Kathy Dai M.D., Pilar.Rosario 11838 I10 F41.9 Office Visit 03/08/2015 3:30p Main Office Rio Brunocelia BENSON, KAVITHA-C 39524 G50.1 Office Visit 12/13/2014 3:15p Main Office Kathy Dai M.D., R.DCathi 30511 R10.10 Z23 276.1 Office Visit 11/17/2014 11:15a Main Office Kathy Dai M.D., R.DCathi 42133 401.9 300.00 Office Visit 10/27/2014 12:00p Main Office Kathy Dai M.D., Pilar.DCathi 81725 401.9 300.00 276.1 Office Visit 10/21/2014 10:30a Main Office Kathy Dai M.D., Pilar.DCathi 67721 401.9 300.00 276.1 Office Visit 10/14/2014 12:30p Main Office Kathy Dai M.D., R.DCathi 76276 401.9 300.00 276.1 Office Visit 10/07/2014 10:00a Main Office Chidi Graff, PATTERNMAKER BENCH-C 43024 401.9 Office Visit 09/09/2014 10:15a Main Office Kathy Dai M.D., R.DCathi 08927 781.2 401.9 959.01 Office Visit 06/28/2014 9:30a Main Office Kathy Dai M.D., R.DCathi G0439 V70.0 401.9 300.00 786.59 840.9 E885.9 Office Visit 05/13/2014 11:15a Main Office Kathy Dai M.D., R.D. 61151 781.2 Office Visit 11/02/2013 10:15a Main Office Kathy Dai M.D., R.Rosario 55329 300.00 Office Visit 10/21/2013 11:30a Main Office Kathy Dai M.D., R.Rosario 22070 300.00 Office Visit 09/21/2013 10:30a Main Office Kathy Dai M.D., R.DCathi 47895 366.9 401.9 300.00 Plan of Care Future Appointment(s):08/26/2017 1:45 pm - Kathy Dai M.D., R.D. at Main Buiqyv1503/13/2017 - Kathy Dai M.D., R.D.I10 Essential (primary) hypertensionRecommendations:We do not want your pulse less than 60. Continue as you have been doing with the Atenolol and Lisinopril.F41.9 Anxiety disorder, unspecifiedRecommendations:Follow up for your physical in August but come sooner if you need anything.
[2017-04-10] MEDS ORDERED: NS 0.9% 1000 ML* 1,000 ML IV ONE (23:20)
[2017-04-10 23:56] LABS: ABS Basophils 0.1 10^3/ul (0-0.2); ABS Eosinophils 0.1 10^3/ul (0-0.6); ABS Lymphocytes 1.9 10^3/ul (1.0-4.8); ABS Neutrophils 2.7 10^3/ul (1.5-7.7); ABS Nucleated RBC 0 10^3/ul; Eosinophil % 2.3 % (0-6); Hematocrit 45 % (35-47); Hemoglobin 15.9 g/dl (12.0-16.0); Lymphocyte % 32.3 % (25-47); Mean Corpuscular HGB Conc 35 g/dl (31-36); Mean Corpuscular Hemoglobin 32 pg (27-31); Mean Corpuscular Volume 92 fL (80-97); Mean Platelet Volume 7 um3 (7.4-10.4); Nucleated Red Blood Cells % 0.1; Platelet Count 250 10^3/ul (150-450); Red Cell Distribution Width 13 % (10.5-15); White Blood Count 5.8 10^3/ul (3.5-10.8)
[2017-04-11 00:12] LABS: INR 0.9 (0.77-1.02)
[2017-04-11 00:14] LABS: EGFR Non-African American 84.1 (>60)
[2017-04-11 01:11] LABS: Urine Appearance Clear; Urine Blood Negative (Negative); Urine Color Straw; Urine Ketones Trace (Negative); Urine Protein Negative (Negative); Urine Specific Gravity 1.003 (1.010-1.030); Urine Urobilinogen Negative (Negative)
--- NOTE | 2017-04-11 01:48 | ED ---
Nathaniel Shafer Thomas, scribed for Papito Hernandez MD on 04/10/17 at 2305 . Dizziness - HPI Summary HPI Summary: The patient is an 81 year old female presenting to the emergency department complaining of dizziness for the last three days. She describes the dizziness as balance is off. She recently started taking HCTZ three days ago. The patient had a similar episode of dizziness about a month ago. The patient additionally states that she is unable to walk secondary to the dizziness. The patient denies a headache, cough, abdominal pain, back pain, chest congestion, urinary symptoms, and fevers. She is on Lisinopril and atenolol. - History Of Current Complaint Chief Complaint: EDDizziness Stated Complaint: DIZZINESS Time Seen by Provider: 04/10/17 22:59 Hx Obtained From: Patient Onset/Duration: Still Present Timing: Constant Severity Initially: Moderate Severity Currently: Moderate Character: Unable To Describe - balance disruption Alleviating Factor(s): Nothing Associated Signs And Symptoms: Negative: Fever - Allergies/Home Medications Allergies/Adverse Reactions: Allergies Allergy/AdvReac Type Severity Reaction Status Date / Time MS Statins [Statins] Allergy Severe See Comment Verified 04/10/17 20:32 Home Medications: Home Medications Atenolol TAB* [Tenormin TAB* 25 MG] 12.5 mg PO QAM 04/10/17 [History Confirmed 04/10/17] Hydrochlorothiazide TAB* [Hydrodiuril TAB*] 25 mg PO QAM 04/10/17 [History Confirmed 04/10/17] Latanoprost 0.005%* [Xalatan 0.005%*] 1 drop BOTH EYES BEDTIME 04/10/17 [ History Confirmed 04/10/17] Timolol 0.5% OPTH.YASSINE* [Timoptic 0.5% Opth*] 1 drop BOTH EYES BID 04/10/17 [ History Confirmed 04/10/17] PMH/Surg Hx/FS Hx/Imm Hx Endocrine/Hematology History: Denies: Hx Diabetes, Hx Thyroid Disease Cardiovascular History: Reports: Hx Hypertension, Other Cardiovascular Problems/ Disorders - HIGH CHOLESTEROL, INTRAPARENCHYMAL HEMORRHAGE OF BRAIN 2015 Denies: Hx Pacemaker/ICD Respiratory History: Denies: Hx Asthma, Hx Chronic Obstructive Pulmonary Disease (COPD) GI History: Denies: Hx Ulcer History: Denies: Hx Dialysis, Hx Renal Disease Musculoskeletal History: Reports: Hx Arthritis - BACK,HANDS Comment Only: Other Musculoskeletal History - see above Sensory History: Reports: Hx Cataracts, Hx Contacts or Glasses - READING, Hx Glaucoma Denies: Hx Hearing Aid Opthamlomology History: Reports: Hx Cataracts, Hx Contacts or Glasses - READING , Hx Glaucoma Psychiatric History: Reports: Hx Anxiety - ON MEDS Denies: Hx Panic Disorder - Cancer History Cancer Type, 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 L HIP REPLACEMENT. RT HIP PINNING. APPY,HYSTERECTOMY, CATARACT BILATERAL EYE, T&A Hx Anesthesia Reactions: No - Immunization History Date of Tetanus Vaccine: PT STATES UNSURE Date of Influenza Vaccine: NONE Infectious Disease History: No Infectious Disease History: Denies: Hx Clostridium Difficile, Hx Hepatitis, Hx Human Immunodeficiency Virus (HIV), Hx of Known/Suspected MRSA, Hx Shingles, Hx Tuberculosis, Hx Known/ Suspected VRE, Hx Known/Suspected VRSA, History Other Infectious Disease, Traveled Outside the [place] in Last 30 Days - Family History Known Family History: Positive: Cardiac Disease - Social History Alcohol Use: Rare Alcohol Amount: 1 DRINK EVERY 6 MONTHS Substance Use Type: Reports: None Smoking Status (MU): Never Smoked Tobacco Have You Smoked in the Last Year: No Review of Systems Negative: Fever Negative: Cough, Other - chest congestion Negative: Abdominal Pain Positive: no symptoms reported Negative: Other - back pain Neurological: Other - Dizziness Negative: Headache All Other Systems Reviewed And Are Negative: Yes Physical Exam - Summary Physical Exam Summary: General: well-appearing, no pain distress Skin: warm, color reflects adequate perfusion, dry Head: normal Eyes: EOMI, MARTIR ENT: normal Neck: supple, nontender Respiratory: CTA, breath sounds present Cardiovascular: RRR Abdomen: soft, nontender Bowel: present Musculoskeletal: normal, strength/ROM intact Neurological: normal, sensory/motor intact, A&O x3 Psychological: affect/mood appropriate Triage Information Reviewed: Yes Vital Signs On Initial Exam: Initial Vitals Temp Pulse Resp BP Pulse Ox 98.4 F 66 16 155/70 96 04/10/17 20:27 04/10/17 20:27 04/10/17 20:27 04/10/17 20:27 04/10/17 20:27 Vital Signs Reviewed: Yes Diagnostics - Vital Signs Vital Signs Temp Pulse Resp BP Pulse Ox 04/10/17 22:28 97.4 F 57 20 147/70 100 04/10/17 20:27 98.4 F 66 16 155/70 96 - Laboratory Lab Results: Lab Results 04/10/17 04/10/17 04/10/17 Range/Units 23:40 23:40 23:40 WBC (3.5-10.8) 10^3/ul RBC (4.0-5.4) 10^6/ul Hgb (12.0-16.0) g/dl Hct (35-47) % MCV (80-97) fL MCH (27-31) pg MCHC (31-36) g/dl RDW (10.5-15) % Plt Count (150-450) 10^3/ul MPV (7.4-10.4) um3 Neut % (Auto) (38-83) % Lymph % (Auto) (25-47) % [place] % (Auto) (1-9) % Eos % (Auto) (0-6) % Baso % (Auto) (0-2) % Absolute Neuts (auto) (1.5-7.7) 10^3/ul Absolute Lymphs (auto) (1.0-4.8) 10^3/ul Absolute Monos (auto) (0-0.8) 10^3/ul Absolute Eos (auto) (0-0.6) 10^3/ul Absolute Basos (auto) (0-0.2) 10^3/ul Absolute Nucleated RBC 10^3/ul Nucleated RBC % INR (Anticoag Therapy) 0.90 (0.77-1.02) APTT 31.2 (26.0-36.3) seconds Sodium 118 L* (133-145) mmol/L Potassium 3.8 (3.5-5.0) mmol/L Chloride 84 L (101-111) mmol/L Carbon Dioxide 26 (22-32) mmol/L Anion Gap 8 (2-11) mmol/L BUN 12 (6-24) mg/dL Creatinine 0.67 (0.51-0.95) mg/dL Est GFR ( Amer) 108.1 (>60) Est GFR (Non-Af Amer) 84.1 (>60) BUN/Creatinine Ratio 17.9 (8-20) Glucose 101 H (70-100) mg/dL Lactic Acid (0.5-2.0) mmol/L Calcium 9.6 (8.6-10.3) mg/dL Magnesium 2.0 (1.9-2.7) mg/dL Total Bilirubin 0.70 (0.2-1.0) mg/dL AST 32 (13-39) U/L ALT 23 (7-52) U/L Alkaline Phosphatase 65 (34-104) U/L Total Creatine Kinase 184 (10-223) U/L CK-MB (CK-2) 8.1 H (0.6-6.3) ng/mL Troponin I 0.01 (<0.04) ng/mL C-Reactive Protein 2.29 (< 5.00) mg/L B-Natriuretic Peptide 85 ( - 100) pg/mL Total Protein 7.2 (6.4-8.9) g/dL Albumin 4.2 (3.2-5.2) g/dL Globulin 3.0 (2-4) g/dL Albumin/Globulin Ratio 1.4 (1-3) Lipase 44 (11.0-82.0) U/L TSH 1.70 (0.34-5.60) mcIU/mL Urine Color Urine Appearance Urine pH (5-9) Ur Specific [place] (1.010-1.030) Urine Protein (Negative) Urine Ketones (Negative) Urine Blood (Negative) Urine Nitrate (Negative) Urine Bilirubin (Negative) Urine Urobilinogen (Negative) Ur Leukocyte Esterase (Negative) Urine Glucose (Negative) 04/10/17 04/10/17 04/11/17 Range/Units 23:40 23:40 01:00 WBC 5.8 (3.5-10.8) 10^3/ul RBC 4.90 (4.0-5.4) 10^6/ul Hgb 15.9 (12.0-16.0) g/dl Hct 45 (35-47) % MCV 92 (80-97) fL MCH 32 H (27-31) pg MCHC 35 (31-36) g/dl RDW 13 (10.5-15) % Plt Count 250 (150-450) 10^3/ul MPV 7 L (7.4-10.4) um3 Neut % (Auto) 46.7 (38-83) % Lymph % (Auto) 32.3 (25-47) % [place] % (Auto) 17.4 H (1-9) % Eos % (Auto) 2.3 (0-6) % Baso % (Auto) 1.3 (0-2) % Absolute Neuts (auto) 2.7 (1.5-7.7) 10^3/ul Absolute Lymphs (auto) 1.9 (1.0-4.8) 10^3/ul Absolute Monos (auto) 1.0 H (0-0.8) 10^3/ul Absolute Eos (auto) 0.1 (0-0.6) 10^3/ul Absolute Basos (auto) 0.1 (0-0.2) 10^3/ul Absolute Nucleated RBC 0 10^3/ul Nucleated RBC % 0.1 INR (Anticoag Therapy) (0.77-1.02) APTT (26.0-36.3) seconds Sodium (133-145) mmol/L Potassium (3.5-5.0) mmol/L Chloride (101-111) mmol/L Carbon Dioxide (22-32) mmol/L Anion Gap (2-11) mmol/L BUN (6-24) mg/dL Creatinine (0.51-0.95) mg/dL Est GFR ( Amer) (>60) Est GFR (Non-Af Amer) (>60) BUN/Creatinine Ratio (8-20) Glucose (70-100) mg/dL Lactic Acid 0.6 (0.5-2.0) mmol/L Calcium (8.6-10.3) mg/dL Magnesium (1.9-2.7) mg/dL Total Bilirubin (0.2-1.0) mg/dL AST (13-39) U/L ALT (7-52) U/L Alkaline Phosphatase (34-104) U/L Total Creatine Kinase (10-223) U/L CK-MB (CK-2) (0.6-6.3) ng/mL Troponin I (<0.04) ng/mL C-Reactive Protein (< 5.00) mg/L B-Natriuretic Peptide ( - 100) pg/mL Total Protein (6.4-8.9) g/dL Albumin (3.2-5.2) g/dL Globulin (2-4) g/dL Albumin/Globulin Ratio (1-3) Lipase (11.0-82.0) U/L TSH (0.34-5.60) mcIU/mL Urine Color Straw Urine Appearance Clear Urine pH 7.0 (5-9) Ur Specific [place] 1.003 L (1.010-1.030) Urine Protein Negative (Negative) Urine Ketones Trace H (Negative) Urine Blood Negative (Negative) Urine Nitrate Negative (Negative) Urine Bilirubin Negative (Negative) Urine Urobilinogen Negative (Negative) Ur Leukocyte Esterase Negative (Negative) Urine Glucose Negative (Negative) Result Diagrams: 04/10/17 23:40 04/10/17 23:40 Lab Statement: Any lab studies that have been ordered have been reviewed, and results considered in the medical decision making process. - Radiology CXR Xray Interpretation: No Acute Changes - Negative Radiology Interpretation Completed By: ED Physician - CT CT Brain CT Interpretation: No Acute Changes - No acute brain parenchymal abnormality. No hemorrhage, mass or acute territorial infract. Atrophy and chronic small vessel ischemic changes. Clear visualized paranasal sinuses. Visualized mastoid air cells clear. Dr. Hernandez has reviewed this report. CT Interpretation Completed By: Radiologist - EKG 20:35 Cardiac Rate: NL EKG Rhythm: Sinus Rhythm - at [address] Segment: Normal Ectopy: None Dizzy Course/Dx - Course Course Of Treatment: ADMIT HOSPITALIST. CRITICAL CARE TIME LESS THAN 30 MINUTES. - Diagnoses Provider Diagnoses: Hyponatremia, Weakness Discharge - Discharge Plan Condition: Stable Disposition: ADMITTED TO [facility] Referrals: Kathy Comer MD [Primary Care Provider] - The documentation as recorded by the Nathaniel thomas Thomas accurately reflects the service I personally performed and the decisions made by , Papito Hernandez MD.
[2017-04-11] MEDS ORDERED: Ondansetron INJ* 2 MG/ML VIAL IV PRN (01:53)
[2017-04-11] MEDS ORDERED: Al Hydrox/Mg Hydrox/Simet LIQ* 30 ML UDC PO PRN (01:53)
[2017-04-11] MEDS ORDERED: Acetaminophen TAB* 325 MG PO PRN (01:53)
[2017-04-11] MEDS ORDERED: Docusate CAP* 100 MG PO PRN (01:53)
[2017-04-11] MEDS ORDERED: Senna TAB PO PRN (01:53)
[2017-04-11 02:34] LABS: EGFR Non-African American 91.9 (>60)
[2017-04-11] MEDS ORDERED: NS 0.9% 1000 ML* 1,000 ML IV SCH (03:30)
[2017-04-11] MEDS: Heparin VIAL(*) 5000 UNITS/ML VIAL (FIVE THOUSAND) SUBCUT SCH ×3 (04:33→20:25)
--- NOTE | 2017-04-11 04:44 | HP ---
CC: Kathy Dai MD * HISTORY AND PHYSICAL: DATE OF ADMISSION: 04/11/17 TIME OF EVALUATION: 0200. PRIMARY CARE PHYSICIAN: Kathy Dai MD CHIEF COMPLAINT: Inability to ambulate. HISTORY OF PRESENT ILLNESS: This is an 81-year-old female with a past medical history of hypertension with worsening weakness in her lower extremities, who was started on hydrochlorothiazide on 04/07/17 and this evening, she was unable to ambulate. She states she has had difficulty ambulating for the past few months that started in January. No numbness or tingling or pain, but lower extremity weakness. She had an MRI done and she is to follow up with Dr. Quigley on 04/15/17 to do nerve conduction studies. The patient states she has issues with hypertension. She cannot walk. When she gets anxious, her blood pressure goes up and that is whey they started her on hydrochloro-thiazide and increased her atenolol dose. On 04/07/17, she had an episode of diarrhea, otherwise no other diarrhea. No vomiting. No nausea. No headache. No confusion. No chest pain or shortness of breath. Otherwise, remaining review of systems is negative. No recent falls either. In the emergency room, the patient had labs and imaging. She had labs. She was given a liter of normal saline and was referred to the hospitalist service for further evaluation. PAST MEDICAL HISTORY: 1. Hypertension. 2. Hyperlipidemia. 3. Anxiety. 4. Glaucoma. 5. History of intracranial bleed back in 2016. 6. Progressive lower extremity weakness. MEDICATIONS: 1. Timolol 0.5% one drop both eyes b.i.d. 2. Xalatan 0.05% one drop both eyes at bedtime. 3. Hydrochlorothiazide 25 mg p.o. in the morning. 4. Atenolol 12.5 mg in the morning and 25 mg in the evening. 5. Aspirin 81 mg daily. 6. Calcium carbonate/cholecalciferol 1 tablet daily. 7. BuSpar 10 mg p.o. b.i.d. 8. [place]-3 fatty acids 1000 mg p.o. daily. 9. Multivitamin daily. 10. Lisinopril 30 mg daily. 11. Zetia 5 mg p.o. daily. 12. Ascorbic acid 500 mg p.o. q.a.m. ALLERGIES: She has an intolerance to statins. FAMILY HISTORY: Reviewed and noncontributory. SOCIAL HISTORY: The patient lives alone. She is independent of her ADLs. Her healthcare proxy is her daughter, Raeann Chowdhury. She has 3 children. No history of tobacco, alcohol, or illicit drug use. CODE STATUS: The patient states she is a DNR/DNI. MOLST form will be completed this evening. REVIEW OF SYSTEMS: A 14-point review of systems as mentioned in the HPI, otherwise negative. PHYSICAL EXAMINATION GENERAL: No acute distress. VITAL SIGNS: Temp 97.4, pulse rate 56, respiratory rate 13, oxygen saturation 97% on room air, and blood pressure 156/69. HEENT: Head: Normocephalic. Pupils equal and reactive, anicteric. Oropharynx : Mucous membranes are moist. NECK: Supple. No lymphadenopathy. RESPIRATORY: Clear to auscultation. No wheezes, rhonchi, or rales. CARDIAC: Regular rate and rhythm. No murmurs, rubs, or gallops. ABDOMEN: Soft, nontender, nondistended. EXTREMITIES: No clubbing, cyanosis, or edema. +1 DPs. NEUROLOGIC: Alert and oriented x3. No gross focal neurologic deficits. She has some subtle weakness in her lower extremities bilaterally. LABORATORY DATA: White count 5.8, hemoglobin 15.9, hematocrit 45, platelets 250. INR 0.9. Sodium 118, potassium 3.8, chloride 84, bicarb 26, BUN 12, creatinine 0.67, glucose 101. Troponin 0.01. TSH is 1.7. Urinalysis is unremarkable. RADIOGRAPHIC DATA: Head CT, no acute abnormality. Chest x-ray, wet read, no acute findings. EKG shows normal sinus rhythm. ASSESSMENT AND PLAN: This is an 81-year-old female with past medical history of hypertension, who was recently started on hydrochlorothiazide, was being worked up for a progressive lower extremity weakness, who presents to the emergency room with inability to ambulate, found to be hyponatremic. 1. Inability to ambulate. Assessment: The patient is being worked up on the outpatient for this progressive lower extremity weakness and planning on getting a nerve conduction studies next week. She is also found to be hyponatremic most likely secondary to the initiation of hydrochlorothiazide started a few days ago. Plan: We will repeat her BNP now that she has gotten some fluids to hold her hydrochlorothiazide and followup with Dr. Quigley for further workup. Unlikely , she is going to be able to get nerve conduction studies here as an inpatient, but we will have PT evaluate her to make sure she is safe for discharge. Chronic medical problems: Hypertension: We will resume her antihypertensive agents of atenolol, lisinopril, hydrochlorothiazide as mentioned. 3. History of anxiety. Continue the BuSpar. 4. Hyperlipidemia. Continue the Zetia. 5. Glaucoma. Resume her eye drops. 6. FEN. Place the patient on a regular diet. We will hold off on fluid restriction at this time until further labs are done. 7. DVT prophylaxis. The patient scores moderate risk. Place her on heparin subcu t.i.d. 8. Code status. The patient states she is a DNR/DNI. We will have her fill the MOLST form. PATIENT TIME: Greater than 50 minutes spent doing the history and physical, more than half the time spent in direct patient contract. [id number]/[facility] #: [id number] FABIAN
[2017-04-11 06:57] LABS: EGFR Non-African American 95.5 (>60)
--- NOTE | 2017-04-11 07:56 | RAD ---
INDICATION: Dizziness COMPARISON: Chest x-ray October 08, 2014 TECHNIQUE: An AP portable view obtained at 2332 hours is submitted. FINDINGS: Bones/Soft Tissues: There are no acute bony findings. Cardiomediastinal: The cardiomediastinal silhouette is normal. Lungs: There are no infiltrates. There is mild hyperinflation. Pleura: There are no pleural effusions. Other: None IMPRESSION: NO ACTIVE DISEASE.
--- NOTE | 2017-04-11 07:58 | RAD ---
INDICATION: Dizziness COMPARISON: CT brain February 18, 2016 TECHNIQUE: Noncontrast axial source images were acquired from the skull base to the vertex. FINDINGS: Ventricles/sulci: There is cortical atrophy with compensatory dilatation of the CSF spaces. Brain parenchyma: There is periventricular and subcortical white matter change compatible with chronic ischemia. Intracranial hemorrhage:None. Extra-axial spaces: There are no abnormal extra axial fluid collections or evidence of extra-axial mass. Calvarium: There is no calvarial fracture or other calvarial abnormality. Scalp: There is no evidence of scalp or extracalvarial soft tissue abnormality. Paranasal sinuses/mastoid: The paranasal sinuses and mastoid air cells are clear. Other: None. IMPRESSION: CORTICAL ATROPHY WITH CHRONIC MICROVASCULAR ISCHEMIC CHANGES. NO ACUTE FINDINGS.
[2017-04-11] MEDS: Aspirin EC Low Dose* 81 MG TAB.EC PO SCH (09:36)
[2017-04-11] MEDS: Multivitamins/Minerals TAB PO SCH (09:36)
[2017-04-11] MEDS: Atenolol TAB* 25 MG PO SCH ×2 (09:36→17:51)
[2017-04-11] MEDS: busPIRone TAB* 10 MG PO SCH ×2 (09:36→20:25)
[2017-04-11] MEDS: Timolol 0.5% OPTH.SOL* BTL BOTH EYES SCH ×2 (09:37→20:26)
[2017-04-11] MEDS: Ezetimibe TAB* 10 MG PO SCH (14:08)
--- NOTE | 2017-04-11 17:47 | PN ---
Subjective Date of Service: 04/11/17 Interval History: No complaints, sitting in chair, denies chest pain, shortness of breath or abd pain. Denies N/V/D Family History: Unchanged from Admission Social History: Unchanged from Admission Past Medical History: Unchanged from Admission Objective Active Medications: Acetaminophen (Tylenol Tab*) 650 mg PO Q4H PRN PRN Reason: FEVER/PAIN Al Hydrox/Mg Hydrox/Simethicone (Maalox Plus*) 30 ml PO Q6H PRN PRN Reason: INDIGESTION Aspirin (Aspirin Ec Low Dose*) 81 mg PO QAM [facility] Last Admin: 04/11/17 09:36 Dose: 81 mg Atenolol (Tenormin Tab*) 12.5 mg PO QAM [facility] Last Admin: 04/11/17 09:36 Dose: 12.5 mg Atenolol (Tenormin Tab*) 25 mg PO QPM [facility] Buspirone HCl (Buspar Tab*) 10 mg PO BID [facility] Last Admin: 04/11/17 09:36 Dose: 10 mg Docusate Sodium (Colace Cap*) 100 mg PO BID PRN PRN Reason: CONSTIPATION Ezetimibe (Zetia Tab*) 5 mg PO 1300 [facility] Last Admin: 04/11/17 14:08 Dose: 5 mg Heparin Sodium (Porcine) (Heparin Vial(*)) 5,000 units SUBCUT Q8HR [facility] Last Admin: 04/11/17 14:09 Dose: 5,000 units Sodium Chloride (Ns 0.9% 1000 Ml*) 1,000 mls @ 75 mls/hr IV PER RATE [facility] Last Admin: 04/11/17 04:30 Dose: 75 mls/hr Latanoprost (Xalatan 0.005%*) 1 drop BOTH EYES BEDTIME [facility] Lisinopril (Prinivil Tab*) 30 mg PO 1700 [facility] Multivitamins/Minerals (Theragran/Minerals Tab*) 1 tab PO DAILY [facility] Last Admin: 04/11/17 09:36 Dose: 1 tab Ondansetron HCl (Zofran Inj*) 4 mg IV Q4H PRN PRN Reason: NAUSEA/VOMITING Senna (Senokot Tab*) 1 tab PO BID PRN PRN Reason: CONSTIPATION Timolol Maleate (Timoptic 0.5% Opth*) 1 drop BOTH EYES BID [facility] Last Admin: 04/11/17 09:37 Dose: 1 drop Vital Signs - 8 hr 04/11/17 04/11/17 14:32 16:26 Temperature 97.5 F 97.6 F Pulse Rate 63 57 Respiratory 16 19 Rate Blood Pressure 137/68 164/66 (mmHg) O2 Sat by Pulse 100 98 Oximetry Oxygen Devices in Use Now: None Appearance: appears comfortable sitting in the chair Eyes: No Scleral Icterus Ears/Nose/Mouth/Throat: Clear Oropharnyx, Mucous Membranes Moist Neck: NL Appearance and Movements; NL JVP, Trachea Midline Respiratory: Symmetrical Chest Expansion and Respiratory Effort, Clear to Auscultation Cardiovascular: NL Sounds; No Murmurs; No JVD, No Edema Abdominal: NL Sounds; No Tenderness; No Distention Extremities: No Edema, No Clubbing, Cyanosis Skin: No Rash or Ulcers Neurological: Alert and Oriented x 3 Nutrition: Taking PO's Result Diagrams: 04/10/17 23:40 04/11/17 06:15 Additional Lab and Data: Lab Results 04/10/17 04/10/17 04/10/17 Range/Units 23:40 23:40 23:40 WBC (3.5-10.8) 10^3/ul RBC (4.0-5.4) 10^6/ul Hgb (12.0-16.0) g/dl Hct (35-47) % MCV (80-97) fL MCH (27-31) pg MCHC (31-36) g/dl RDW (10.5-15) % Plt Count (150-450) 10^3/ul MPV (7.4-10.4) um3 Neut % (Auto) (38-83) % Lymph % (Auto) (25-47) % [place] % (Auto) (1-9) % Eos % (Auto) (0-6) % Baso % (Auto) (0-2) % Absolute Neuts (auto) (1.5-7.7) 10^3/ul Absolute Lymphs (auto) (1.0-4.8) 10^3/ul Absolute Monos (auto) (0-0.8) 10^3/ul Absolute Eos (auto) (0-0.6) 10^3/ul Absolute Basos (auto) (0-0.2) 10^3/ul Absolute Nucleated RBC 10^3/ul Nucleated RBC % INR (Anticoag Therapy) 0.90 (0.77-1.02) APTT 31.2 (26.0-36.3) seconds Sodium 118 L* (133-145) mmol/L Potassium 3.8 (3.5-5.0) mmol/L Chloride 84 L (101-111) mmol/L Carbon Dioxide 26 (22-32) mmol/L Anion Gap 8 (2-11) mmol/L BUN 12 (6-24) mg/dL Creatinine 0.67 (0.51-0.95) mg/dL Est GFR ( Amer) 108.1 (>60) Est GFR (Non-Af Amer) 84.1 (>60) BUN/Creatinine Ratio 17.9 (8-20) Glucose 101 H (70-100) mg/dL Lactic Acid (0.5-2.0) mmol/L Calcium 9.6 (8.6-10.3) mg/dL Magnesium 2.0 (1.9-2.7) mg/dL Total Bilirubin 0.70 (0.2-1.0) mg/dL AST 32 (13-39) U/L ALT 23 (7-52) U/L Alkaline Phosphatase 65 (34-104) U/L Total Creatine Kinase 184 (10-223) U/L CK-MB (CK-2) 8.1 H (0.6-6.3) ng/mL Troponin I 0.01 (<0.04) ng/mL C-Reactive Protein 2.29 (< 5.00) mg/L B-Natriuretic Peptide 85 ( - 100) pg/mL Total Protein 7.2 (6.4-8.9) g/dL Albumin 4.2 (3.2-5.2) g/dL Globulin 3.0 (2-4) g/dL Albumin/Globulin Ratio 1.4 (1-3) Lipase 44 (11.0-82.0) U/L TSH 1.70 (0.34-5.60) mcIU/mL Urine Color Urine Appearance Urine pH (5-9) Ur Specific [place] (1.010-1.030) Urine Protein (Negative) Urine Ketones (Negative) Urine Blood (Negative) Urine Nitrate (Negative) Urine Bilirubin (Negative) Urine Urobilinogen (Negative) Ur Leukocyte Esterase (Negative) Urine Glucose (Negative) 04/10/17 04/10/17 04/11/17 Range/Units 23:40 23:40 01:00 WBC 5.8 (3.5-10.8) 10^3/ul RBC 4.90 (4.0-5.4) 10^6/ul Hgb 15.9 (12.0-16.0) g/dl Hct 45 (35-47) % MCV 92 (80-97) fL MCH 32 H (27-31) pg MCHC 35 (31-36) g/dl RDW 13 (10.5-15) % Plt Count 250 (150-450) 10^3/ul MPV 7 L (7.4-10.4) um3 Neut % (Auto) 46.7 (38-83) % Lymph % (Auto) 32.3 (25-47) % [place] % (Auto) 17.4 H (1-9) % Eos % (Auto) 2.3 (0-6) % Baso % (Auto) 1.3 (0-2) % Absolute Neuts (auto) 2.7 (1.5-7.7) 10^3/ul Absolute Lymphs (auto) 1.9 (1.0-4.8) 10^3/ul Absolute Monos (auto) 1.0 H (0-0.8) 10^3/ul Absolute Eos (auto) 0.1 (0-0.6) 10^3/ul Absolute Basos (auto) 0.1 (0-0.2) 10^3/ul Absolute Nucleated RBC 0 10^3/ul Nucleated RBC % 0.1 INR (Anticoag Therapy) (0.77-1.02) APTT (26.0-36.3) seconds Sodium (133-145) mmol/L Potassium (3.5-5.0) mmol/L Chloride (101-111) mmol/L Carbon Dioxide (22-32) mmol/L Anion Gap (2-11) mmol/L BUN (6-24) mg/dL Creatinine (0.51-0.95) mg/dL Est GFR ( Amer) (>60) Est GFR (Non-Af Amer) (>60) BUN/Creatinine Ratio (8-20) Glucose (70-100) mg/dL Lactic Acid 0.6 (0.5-2.0) mmol/L Calcium (8.6-10.3) mg/dL Magnesium (1.9-2.7) mg/dL Total Bilirubin (0.2-1.0) mg/dL AST (13-39) U/L ALT (7-52) U/L Alkaline Phosphatase (34-104) U/L Total Creatine Kinase (10-223) U/L CK-MB (CK-2) (0.6-6.3) ng/mL Troponin I (<0.04) ng/mL C-Reactive Protein (< 5.00) mg/L B-Natriuretic Peptide ( - 100) pg/mL Total Protein (6.4-8.9) g/dL Albumin (3.2-5.2) g/dL Globulin (2-4) g/dL Albumin/Globulin Ratio (1-3) Lipase (11.0-82.0) U/L TSH (0.34-5.60) mcIU/mL Urine Color Straw Urine Appearance Clear Urine pH 7.0 (5-9) Ur Specific [place] 1.003 L (1.010-1.030) Urine Protein Negative (Negative) Urine Ketones Trace H (Negative) Urine Blood Negative (Negative) Urine Nitrate Negative (Negative) Urine Bilirubin Negative (Negative) Urine Urobilinogen Negative (Negative) Ur Leukocyte Esterase Negative (Negative) Urine Glucose Negative (Negative) Assess/Plan/Problems-Billing Assessment: Ms Chowdhury is an 81 y.o female that presented to the Emergency room for increased weakness and difficulty ambulating. Patient was recently started on HCTZ and was found to have hyponatremia. - Patient Problems (1) Hyponatremia Current Visit: Yes Status: Acute Code(s): E87.1 - HYPO-OSMOLALITY AND HYPONATREMIA SNOMED Code(s): 17795847 Comment: Will continue to monitor Will repeat BMP in the AM Continue Normal saline at 75 cc/ hr (2) Hypertension Current Visit: No Status: Acute Code(s): I10 - ESSENTIAL (PRIMARY) HYPERTENSION SNOMED Code(s): 35290713 Comment: SBP 130s. Continue home lisinopril and atenolol. (3) Hyperlipidemia Current Visit: Yes Status: Acute Code(s): E78.5 - HYPERLIPIDEMIA, UNSPECIFIED SNOMED Code(s): 71290091 Comment: continue- zetia (4) Anxiety Current Visit: Yes Status: Acute Code(s): F41.9 - ANXIETY DISORDER, UNSPECIFIED SNOMED Code(s): 83096510 Comment: stable- continue Buspar (5) Glaucoma Current Visit: Yes Status: Acute Code(s): H40.9 - UNSPECIFIED GLAUCOMA SNOMED Code(s): 82151956 Comment: continue home eye drops (6) DVT prophylaxis Current Visit: Yes Status: Acute Code(s): [id number] - SNOMED Code(s): 924166724 Comment: HSQ (7) DNR (do not resuscitate) Current Visit: Yes Status: Acute Status and Disposition: inpatient- PT consult- suggests contact guard for ambulation
[2017-04-11] MEDS: Lisinopril TAB* 10 MG PO SCH (17:51)
[2017-04-11] MEDS ORDERED: Latanoprost 0.005%* 2.5 ml BTL BOTH EYES SCH (21:00)
[2017-04-12] MEDS: Heparin VIAL(*) 5000 UNITS/ML VIAL (FIVE THOUSAND) SUBCUT SCH ×2 (05:41→13:12)
[2017-04-12] MEDS: Aspirin EC Low Dose* 81 MG TAB.EC PO SCH (07:51)
[2017-04-12] MEDS: Multivitamins/Minerals TAB PO SCH (07:51)
[2017-04-12] MEDS: busPIRone TAB* 10 MG PO SCH (07:51)
[2017-04-12] MEDS: Atenolol TAB* 25 MG PO SCH ×2 (07:52→17:46)
[2017-04-12] MEDS: Timolol 0.5% OPTH.SOL* BTL BOTH EYES SCH (07:52)
[2017-04-12 08:16] LABS: ABS Basophils 0.1 10^3/ul (0-0.2); ABS Eosinophils 0.1 10^3/ul (0-0.6); ABS Monocytes 0.6 10^3/ul (0-0.8); ABS Neutrophils 2.3 10^3/ul (1.5-7.7); ABS Nucleated RBC 0 10^3/ul; Eosinophil % 2.2 % (0-6); Hematocrit 45 % (35-47); Hemoglobin 15.8 g/dl (12.0-16.0); Lymphocyte % 24.4 % (25-47); Mean Corpuscular HGB Conc 35 g/dl (31-36); Mean Corpuscular Hemoglobin 33 pg (27-31); Mean Corpuscular Volume 93 fL (80-97); Mean Platelet Volume 8 um3 (7.4-10.4); Nucleated Red Blood Cells % 0.1; Platelet Count 249 10^3/ul (150-450); Red Blood Count 4.82 10^6/ul (4.0-5.4); Red Cell Distribution Width 13 % (10.5-15)
[2017-04-12 08:24] LABS: EGFR Non-African American 99.3 (>60)
[2017-04-12] MEDS: Ezetimibe TAB* 10 MG PO SCH (13:12)
[2017-04-12 15:39] VITALS: BP 148/71
[2017-04-12] MEDS: Lisinopril TAB* 10 MG PO SCH (17:46)
== END 2017-04-12 18:00 | disposition home or self-care (01) ==
LOC: ED 20:25 → MED 04-11 01:53
PROVIDERS: ADMIT Pediatrics; ATTEND Internal Medicine
DX: E87.1 Hypo-osmolality and hyponatremia (principal); I10 Essential (primary) hypertension; E78.5 Hyperlipidemia, unspecified; F41.9 Anxiety disorder, unspecified; H40.9 Unspecified glaucoma; R42 Dizziness and giddiness; Z86.79 Personal history of other diseases of the circulatory system; R53.1 Weakness
CPT/HCPCS: 36415; 70450; 71045; 80048; 80053; 81003; 82550; 82553; 83605; 83690; 83735; 83880; 84443; 84484; 85025; 85610; 85730; 86140; 93005; 99284; A9270-GY; G0378; G8978-GP-CJ; G8979-GP-CI; G8981-GP-CI; G8982-GP-CH; G8983-GP-CI; J1644

== ENCOUNTER 2019-12-23 17:11 | Inpatient (IN) ==
[2019-12-23] MEDS ORDERED: NS 0.9% 1000 ml BAG 1,000 ML IV ONE (17:15)
[2019-12-23] MEDS ORDERED: Iodixanol (CONTRAST) 320 MG/ML 100 ML SDV IV ONE (17:42)
[2019-12-23 17:48] LABS: ABS Basophils 0.1 10^3/ul (0-0.2); ABS Eosinophils 0.1 10^3/ul (0-0.6); ABS Lymphocytes 2.2 10^3/ul (1.0-4.8); ABS Monocytes 1.3 10^3/ul (0-0.8); ABS Neutrophils 3.2 10^3/ul (1.5-7.7); Eosinophil % 2.1 %; Hematocrit 40 % (35-47); Hemoglobin 14.2 g/dL (12.0-16.0); Lymphocyte % 31.8 %; Mean Corpuscular HGB Conc 36 g/dL (31-36); Mean Corpuscular Hemoglobin 34 pg (27-31); Mean Corpuscular Volume 94 fL (80-97); Platelet Count 247 10^3/uL (150-450); Red Blood Count 4.25 10^6 /uL (3.70-4.87); Red Cell Distribution Width 14 % (10-15); White Blood Count 6.9 10^3/uL (3.5-10.8)
[2019-12-23 18:05] LABS: Albumin 4.2 g/dL (3.2-5.2); Albumin/Globulin Ratio 1.3 (1-3); BUN/Creatinine Ratio 19.2 (8-20); Calcium 9.6 mg/dL (8.6-10.3); EGFR African American 84.7 (>60); Globulin 3.3 g/dL (2-4); Potassium 4.4 mmol/L (3.5-5.0); Total Bilirubin 0.5 mg/dL (0.2-1.0); Total Protein 7.5 g/dL (6.4-8.9)
[2019-12-23 18:06] LABS: Urine Appearance Clear; Urine Bilirubin Negative (Negative); Urine Blood Negative (Negative); Urine Color Straw; Urine Glucose Negative (Negative); Urine Ketones Negative (Negative); Urine Nitrite Negative (Negative); Urine Protein Negative (Negative); Urine Specific Gravity 1.006 (1.010-1.030); Urine Urobilinogen Negative (Negative)
[2019-12-23 18:07] LABS: Troponin I 0.01 ng/mL (<0.03)
[2019-12-23 18:08] LABS: Activated Partial Thrombo Time 28.2 seconds (26.0-38.0); INR 0.93 (0.82-1.09)
[2019-12-24] MEDS: Multivitamins/Minerals TAB PO SCH (09:34)
[2019-12-24] MEDS: Timolol 0.5% OPTH.SOL BTL BOTH EYES SCH ×2 (09:35→20:43)
[2019-12-24 11:19] LABS: Calcium 9.5 mg/dL (8.6-10.3); EGFR African American 114.7 (>60); EGFR Non-African American 94.8 (>60); Potassium 4.2 mmol/L (3.5-5.0)
[2019-12-24 11:46] LABS: TSH Ultra Thyroid Stim Horm 0.58 mcIU/mL (0.34-5.60)
[2019-12-24 16:45] LABS: BUN/Creatinine Ratio 23.8 (8-20); Calcium 9.5 mg/dL (8.6-10.3); EGFR African American 108.4 (>60); EGFR Non-African American 89.6 (>60); Potassium 4.2 mmol/L (3.5-5.0)
[2019-12-24] MEDS: Latanoprost 0.005% 2.5 ml BTL BOTH EYES SCH (22:01)
[2019-12-24 22:25] LABS: BUN/Creatinine Ratio 24.3 (8-20); Calcium 9.4 mg/dL (8.6-10.3); EGFR Non-African American 79.3 (>60); Potassium 4.1 mmol/L (3.5-5.0)
[2019-12-25 08:30] LABS: BUN/Creatinine Ratio 23.4 (8-20); Calcium 9.3 mg/dL (8.6-10.3); EGFR African American 106.5 (>60); Potassium 4.4 mmol/L (3.5-5.0)
[2019-12-25 08:35] LABS: ABS Lymphocytes 1.8 10^3/ul (1.0-4.8); ABS Monocytes 1.2 10^3/ul (0-0.8); ABS Neutrophils 5.7 10^3/ul (1.5-7.7); Eosinophil % 0.1 %; Hematocrit 39 % (35-47); Hemoglobin 13.6 g/dL (12.0-16.0); Lymphocyte % 20.4 %; Mean Corpuscular HGB Conc 35 g/dL (31-36); Mean Corpuscular Hemoglobin 33 pg (27-31); Mean Corpuscular Volume 94 fL (80-97); Mean Platelet Volume 7.4 fL (7.4-10.4); Platelet Count 244 10^3/uL (150-450); Red Blood Count 4.11 10^6 /uL (3.70-4.87); Red Cell Distribution Width 14 % (10-15); White Blood Count 8.7 10^3/uL (3.5-10.8)
[2019-12-25] MEDS: Multivitamins/Minerals TAB PO SCH (09:01)
[2019-12-25] MEDS: Timolol 0.5% OPTH.SOL BTL BOTH EYES SCH ×2 (09:02→21:17)
[2019-12-25 15:01] LABS: Calcium 9.5 mg/dL (8.6-10.3); Potassium 3.8 mmol/L (3.5-5.0)
[2019-12-25 15:06] LABS: BUN/Creatinine Ratio 28.6 (8-20); EGFR African American 77.8 (>60); EGFR Non-African American 64.3 (>60)
[2019-12-25] MEDS: Latanoprost 0.005% 2.5 ml BTL BOTH EYES SCH (21:17)
[2019-12-26 07:36] LABS: BUN/Creatinine Ratio 42.4 (8-20); Calcium 9.4 mg/dL (8.6-10.3); EGFR African American 102.7 (>60); EGFR Non-African American 84.9 (>60); Potassium 4.1 mmol/L (3.5-5.0)
[2019-12-26] MEDS: Multivitamins/Minerals TAB PO SCH (08:09)
[2019-12-26] MEDS: Timolol 0.5% OPTH.SOL BTL BOTH EYES SCH ×3 (08:14→21:49)
[2019-12-26] MEDS: Latanoprost 0.005% 2.5 ml BTL BOTH EYES SCH (21:49)
[2019-12-27 07:17] LABS: BUN/Creatinine Ratio 38.5 (8-20); Calcium 9.2 mg/dL (8.6-10.3); EGFR African American 135.3 (>60); EGFR Non-African American 111.8 (>60); Potassium 4.1 mmol/L (3.5-5.0)
[2019-12-27] MEDS: Multivitamins/Minerals TAB PO SCH (09:19)
[2019-12-27] MEDS: Timolol 0.5% OPTH.SOL BTL BOTH EYES SCH (09:23)
[2019-12-27 12:10] VITALS: BP 143/59
== END 2019-12-27 13:00 | DRG 644 ==
LOC: ED 17:11 → MEDTELE 17:11
PROVIDERS: ADMIT Internal Medicine; ATTEND Student in an Organized Health Care Education/Training Program

== ENCOUNTER 2019-12-27 14:18 | Inpatient (IN) ==
[2019-12-27] MEDS ORDERED: Senna TAB 8.6 mg TAB PO PRN (15:32)
[2019-12-27] MEDS: Latanoprost 0.005% 2.5 ml BTL BOTH EYES SCH (20:03)
[2019-12-27] MEDS: Timolol 0.5% OPTH.SOL BTL BOTH EYES SCH (20:03)
[2019-12-28] MEDS: Multivitamins/Minerals TAB PO SCH (08:44)
[2019-12-28] MEDS: Aspirin EC 81 mg TAB.EC (enteric coated) PO SCH (08:44)
[2019-12-28] MEDS: Timolol 0.5% OPTH.SOL BTL BOTH EYES SCH ×2 (08:48→21:39)
[2019-12-28 09:50] LABS: ABS Eosinophils 0.1 10^3/ul (0-0.6); ABS Lymphocytes 1.1 10^3/ul (1.0-4.8); ABS Monocytes 0.5 10^3/ul (0-0.8); ABS Neutrophils 4.8 10^3/ul (1.5-7.7); Eosinophil % 1.6 %; Hematocrit 40 % (35-47); Lymphocyte % 16.9 %; Mean Corpuscular HGB Conc 35 g/dL (31-36); Mean Corpuscular Hemoglobin 34 pg (27-31); Mean Corpuscular Volume 95 fL (80-97); Mean Platelet Volume 6.9 fL (7.4-10.4); Platelet Count 305 10^3/uL (150-450); Red Cell Distribution Width 14 % (10-15); White Blood Count 6.6 10^3/uL (3.5-10.8)
[2019-12-28 10:06] LABS: Albumin 3.8 g/dL (3.2-5.2); Albumin/Globulin Ratio 1.2 (1-3); BUN/Creatinine Ratio 30.2 (8-20); Calcium 9.2 mg/dL (8.6-10.3); EGFR African American 108.4 (>60); EGFR Non-African American 89.6 (>60); Globulin 3.1 g/dL (2-4); Potassium 4.2 mmol/L (3.5-5.0); Total Bilirubin 0.9 mg/dL (0.2-1.0); Total Protein 6.9 g/dL (6.4-8.9)
[2019-12-28] MEDS: Latanoprost 0.005% 2.5 ml BTL BOTH EYES SCH (21:39)
[2019-12-29] MEDS: Aspirin EC 81 mg TAB.EC (enteric coated) PO SCH (07:33)
[2019-12-29] MEDS: Multivitamins/Minerals TAB PO SCH (07:34)
[2019-12-29] MEDS: Timolol 0.5% OPTH.SOL BTL BOTH EYES SCH ×2 (07:36→19:50)
[2019-12-29] MEDS: Heparin 5000 UNITS/ML 1 mL VIAL SUBCUT SCH (19:49)
[2019-12-29] MEDS: Latanoprost 0.005% 2.5 ml BTL BOTH EYES SCH (20:03)
[2019-12-30] MEDS: Multivitamins/Minerals TAB PO SCH (07:36)
[2019-12-30] MEDS: Aspirin EC 81 mg TAB.EC (enteric coated) PO SCH (07:38)
[2019-12-30 07:40] LABS: BUN/Creatinine Ratio 28.6 (8-20); Calcium 8.6 mg/dL (8.6-10.3); EGFR African American 124.2 (>60); EGFR Non-African American 102.6 (>60); Potassium 4.3 mmol/L (3.5-5.0)
[2019-12-30] MEDS: Heparin 5000 UNITS/ML 1 mL VIAL SUBCUT SCH ×2 (07:40→20:07)
[2019-12-30] MEDS: Timolol 0.5% OPTH.SOL BTL BOTH EYES SCH ×2 (07:45→20:07)
[2019-12-30] MEDS: Latanoprost 0.005% 2.5 ml BTL BOTH EYES SCH (20:21)
[2019-12-31 05:06] LABS: Calcium 9.4 mg/dL (8.6-10.3); EGFR African American 110.4 (>60); EGFR Non-African American 91.3 (>60); Potassium 4.9 mmol/L (3.5-5.0)
[2019-12-31 05:51] VITALS: BP 155/70
[2019-12-31] MEDS: Aspirin EC 81 mg TAB.EC (enteric coated) PO SCH (08:16)
[2019-12-31] MEDS: Heparin 5000 UNITS/ML 1 mL VIAL SUBCUT SCH (08:17)
[2019-12-31] MEDS: Multivitamins/Minerals TAB PO SCH (08:17)
[2019-12-31] MEDS: Timolol 0.5% OPTH.SOL BTL BOTH EYES SCH (08:18)
== END 2019-12-31 14:37 | disposition home or self-care (01) | DRG 57 ==
LOC: PMRU 14:21
PROVIDERS: ADMIT Physical Medicine & Rehabilitation; ATTEND Physical Medicine & Rehabilitation

== ENCOUNTER 2020-04-22 18:06 | Observation (INO) ==
[2020-04-22 21:23] LABS: ABS Basophils 0.1 10^3/ul (0-0.2); ABS Eosinophils 0.1 10^3/ul (0-0.6); ABS Lymphocytes 1.7 10^3/ul (1.0-4.8); ABS Monocytes 0.9 10^3/ul (0-0.8); ABS Neutrophils 7.1 10^3/ul (1.5-7.7); Eosinophil % 0.7 %; Hematocrit 43 % (35-47); Hemoglobin 14.8 g/dL (12.0-16.0); Lymphocyte % 17.2 %; Mean Corpuscular HGB Conc 35 g/dL (31-36); Mean Corpuscular Hemoglobin 33 pg (27-31); Mean Corpuscular Volume 94 fL (80-97); Mean Platelet Volume 7.3 fL (7.4-10.4); Nucleated Red Blood Cells % 0.1; Platelet Count 249 10^3/uL (150-450); Red Blood Count 4.56 10^6 /uL (3.70-4.87); Red Cell Distribution Width 14 % (10-15); White Blood Count 9.8 10^3/uL (3.5-10.8)
[2020-04-22 21:44] LABS: Albumin/Globulin Ratio 1.5 (1-3); BUN/Creatinine Ratio 18.5 (8-20); C Reactive Protein 2.81 mg/L (<8.01); EGFR African American 104.6 (>60); EGFR Non-African American 86.4 (>60); Globulin 2.7 g/dL (2-4); Potassium 3.7 mmol/L (3.5-5.0); Total Bilirubin 0.6 mg/dL (0.2-1.0); Total Protein 6.7 g/dL (6.4-8.9)
[2020-04-22 21:46] LABS: Troponin I 0.01 ng/mL (<0.03)
[2020-04-22 22:08] LABS: TSH Ultra Thyroid Stim Horm 0.96 mcIU/mL (0.34-5.60)
[2020-04-22] MEDS ORDERED: NS 0.9% 1000 ml BAG 1,000 ML IV ONE (22:23)
[2020-04-23 00:38] LABS: Albumin 3.8 g/dL (3.2-5.2); Albumin/Globulin Ratio 1.3 (1-3); BUN/Creatinine Ratio 20.6 (8-20); Calcium 8.4 mg/dL (8.6-10.3); EGFR African American 99.3 (>60); Globulin 2.9 g/dL (2-4); Total Bilirubin 0.5 mg/dL (0.2-1.0); Total Protein 6.7 g/dL (6.4-8.9)
[2020-04-23] MEDS ORDERED: Ondansetron 4 mg VIAL 2 MG/ML 2 ml VIAL IV PRN (02:12)
[2020-04-23] MEDS ORDERED: NS 0.9% 1000 ml BAG 1,000 ML IV SCH (02:15)
[2020-04-23] MEDS: Latanoprost 0.005% 2.5 ml BTL BOTH EYES SCH ×2 (03:45→21:37)
[2020-04-23 04:28] LABS: Urine Appearance Clear; Urine Bilirubin Negative (Negative); Urine Blood Negative (Negative); Urine Color Straw; Urine Glucose Negative (Negative); Urine Ketones Negative (Negative); Urine Nitrite Negative (Negative); Urine Protein Negative (Negative); Urine Specific Gravity 1.006 (1.010-1.030); Urine Urobilinogen Negative (Negative)
[2020-04-23 05:53] LABS: ABS Eosinophils 0.1 10^3/ul (0-0.6); ABS Lymphocytes 1.5 10^3/ul (1.0-4.8); ABS Monocytes 0.9 10^3/ul (0-0.8); ABS Neutrophils 4.2 10^3/ul (1.5-7.7); Eosinophil % 1.4 %; Hematocrit 43 % (35-47); Hemoglobin 14.8 g/dL (12.0-16.0); Lymphocyte % 21.6 %; Mean Corpuscular HGB Conc 34 g/dL (31-36); Mean Corpuscular Hemoglobin 33 pg (27-31); Mean Corpuscular Volume 96 fL (80-97); Mean Platelet Volume 7.6 fL (7.4-10.4); Platelet Count 243 10^3/uL (150-450); Red Blood Count 4.51 10^6 /uL (3.70-4.87); Red Cell Distribution Width 14 % (10-15); White Blood Count 6.8 10^3/uL (3.5-10.8)
[2020-04-23 06:11] LABS: Calcium 8.8 mg/dL (8.6-10.3); EGFR African American 112.5 (>60); Potassium 3.8 mmol/L (3.5-5.0)
[2020-04-23] MEDS: Timolol 0.5% OPTH.SOL BTL BOTH EYES SCH ×2 (09:48→21:43)
[2020-04-23] MEDS: Multivitamins/Minerals TAB PO SCH (09:52)
[2020-04-23] MEDS: Calcium/Vitamin D TAB 250/125 TAB PO SCH (09:53)
[2020-04-23] MEDS: Aspirin EC 81 mg TAB.EC (enteric coated) PO SCH (09:54)
[2020-04-23] MEDS: [UNRECOGNIZED DRUG - OTHER] PO SCH (11:00)
[2020-04-24] MEDS ORDERED: hydrALAZINE 20 mg/ml 1 ML Vial IV IV SLOW PU ONE (04:07)
[2020-04-24] MEDS: Lidocaine PATCH 5% PATCH TRANSDERM SCH ×2 (06:15→10:15)
[2020-04-24 07:01] LABS: BUN/Creatinine Ratio 23.1 (8-20); Calcium 8.8 mg/dL (8.6-10.3); EGFR African American 135.3 (>60); EGFR Non-African American 111.8 (>60); Potassium 4.1 mmol/L (3.5-5.0)
[2020-04-24] MEDS: Timolol 0.5% OPTH.SOL BTL BOTH EYES SCH (10:10)
[2020-04-24] MEDS: Aspirin EC 81 mg TAB.EC (enteric coated) PO SCH (10:12)
[2020-04-24] MEDS: Calcium/Vitamin D TAB 250/125 TAB PO SCH (10:13)
[2020-04-24] MEDS: Multivitamins/Minerals TAB PO SCH (10:14)
[2020-04-24] MEDS: [UNRECOGNIZED DRUG - OTHER] PO SCH (10:15)
[2020-04-24 14:40] VITALS: BP 146/69
[2020-04-24] MEDS ORDERED: Lidocaine Patch REMOVE PATCH PATCH OFF SCH (21:00)
[2020-04-25] MEDS ORDERED: CMCS:OMEGA-3 FATTY ACID 1000 mg(NF) PO SCH (09:00)
== END 2020-04-24 16:55 | disposition home or self-care (01) ==
LOC: MEDTELE 18:06 → ED 18:06 → MEDTELE 04-23 03:36
PROVIDERS: ADMIT Internal Medicine; ATTEND Internal Medicine